=== PATIENT | female | born 1995 | race Caucasian/White ===

== ENCOUNTER → 2019-11-13 07:42 | Outpatient (CLI) | payer OTHER, SELFPAY ==
--- NOTE | ~2019-11-13 | US_ITS ---
US right upper quadrant DATE: 11/13/2019 08:13 INDICATION: Epigastric abdominal pain TECHNIQUE: Real-time imaging and Doppler analysis of the liver, pancreas, gallbladder areas COMPARISON: None FINDINGS: There is an approximately 3-4 mm polyp of the gallbladder wall. No gallstones or gallbladde r wall thickening or pericholecystic abnormal fluid collection is noted. Negative sonographic Guerin' s sign. The common bile duct measures 4.4 mm, normal. No hepatic or pancreatic space-occupying mass lesion. Normal hepatopedal portal venous flow direction . IMPRESSION: Small gallbladder wall polyp Reviewed, dictated and finalized at [facility]. Reviewed, dictated and finalized at [facility].
== END ==
PROVIDERS: PCP Nurse Practitioner Family; Visit Provider Nurse Practitioner Family
DX: R10.13 Epigastric pain (principal); K82.4 Cholesterolosis of gallbladder
CPT/HCPCS: 76705

== ENCOUNTER 2020-02-08 00:39 | Outpatient (CLI) | payer OTHER, SELFPAY ==
[2020-02-08 20:28] LABS: SARS-CoV-2 RNA PCR Negative
== END 2020-02-08 00:40 | disposition home or self-care (01) ==
LOC: ANHCOVIDDT 00:39
PROVIDERS: PCP Nurse Practitioner Family; Visit Provider Surgery
DX: Z01.812 Encounter for preprocedural laboratory examination (principal); Z20.828 Contact with and (suspected) exposure to other viral communicable diseases
CPT/HCPCS: 87635; C9803; U0003

== ENCOUNTER 2020-02-08 09:05 | Outpatient (CLI) | payer OTHER, SELFPAY ==
[2020-02-08 09:51] LABS: Alanine Aminotransferase 13 U/L (4-35); Albumin Level 4.5 g/dL (3.5-5.1); Alkaline Phosphatase 88 U/L (38-126); Amylase 62 U/L (30-110); Aspartate Amino Transferase 24 U/L (14-36); Bilirubin,Total 0.3 mg/dL (0.2-1.3); Lipase 39 U/L (23-300)
== END 2020-02-08 09:06 | disposition home or self-care (01) ==
LOC: ANHSURGERY 09:07
PROVIDERS: PCP Nurse Practitioner Family; Visit Provider Surgery
DX: R10.13 Epigastric pain (principal); Z01.818 Encounter for other preprocedural examination
CPT/HCPCS: 36415; 80076; 82150; 83690; 86850; 86900; 86901

== ENCOUNTER 2020-02-11 00:25 | Day surgery (SDC) | payer OTHER, SELFPAY ==
[2020-01-30 17:14] VITALS: BMI 32.8
[2020-02-11] VITALS (9 sets, daily range): BP systolic 112–142; BP diastolic 54–95; PULSE 67–119; RESP 16–21; TEMP 36.1–36.7; O2SAT 98–100
--- NOTE | 2020-02-11 09:34 | WPDANESEPPF ---
Anes - Initial Pre Proc Eval Procedure: Operation Date: 02/11/20 12:00 Proposed Procedures p Laparoscopic Cholecystectomy Possibly Open - Subhash Villagomez DO Date/Time: 02/11/20 09:34 Surgeon: Subhash Villagomez DO Pre Op Diagnosis: Epigastric Pain, Gallbladder Polyp Patient Data Age: 24 Gender: F Height: 1.73 m Weight: 97.8 kg Allergies Allergy/AdvReac Type Severity Reaction Status Date / Time No Known Allergies Allergy Mild Verified 01/08/20 09:44 Home Medications Medication Instructions Recorded Confirmed Type fexofenadine 60 mg tablet 60 mg PO Q12H PRN 01/07/20 01/30/20 History omeprazole magnesium 20 mg 20 mg PO DAILY 01/07/20 01/30/20 History tablet,delayed release ondansetron HCl 4 mg tablet 4 mg PO Q8H PRN 01/07/20 01/30/20 History norethindrone-e.estradiol-iron 1 cap PO DAILY 01/30/20 01/30/20 History [[place]] Patient hx anesthesia problems: post op nausea/vomiting Family hx anesthesia problems: none PMFSH Past Medical History Medical History (Updated 02/11/20 @ 09:34 by Paul Wheeler MD) Anxiety BMI 33.0-33.9,adult Epigastric abdominal pain Gallbladder polyp History of gastroesophageal reflux (GERD) History of kidney stones Obesity Surgical History Surgical History H/O removal of cyst chin History of myringotomy History of tonsillectomy Family History Family History Father Hypertension Mother Hypertension Grandparent Diabetes mellitus Uterine cancer Social History Social History Smoking status: Never smoker Alcohol intake: current Substance use: never Living arrangements: with family 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 Gender identity (if verbalized by the patient): Female Sexual Orientation (if Verbalized by the Patient): Straight or Heterosexual Spiritual care concerns: No Anes - Eval Final PreProcedure Day of Procedure 02/11/20 09:34 Patient weight: obese Heart: regular rate and rhythm Lungs: clear to auscultation and normal air movement Airway: Mallampati scale class II Neurological: alert and oriented Last oral intake: >/= 8 hours ASA classification: II Emergent: no Anesthetic plan: proceed Anesthesia type and monitoring: general ETT Informed Consent: The patient's anesthetic plan and its attendant risks and benefits were discussed with the patient/family/POA. Questions were solicited and answers provided to the satisfaction of the patient/family/POA.
[2020-02-11] MEDS: LACTATED RINGERS 1,000 ML 30 ML IV CONT ×2 (11:14→14:40)
[2020-02-11] MEDS: ACETAMINOPHEN 500 MG TABLET 1000 MG PO (11:15)
[2020-02-11] MEDS: KETOROLAC 15 MG/ML VIAL (*BKC) IV PUSH (11:20)
--- NOTE | 2020-02-11 12:41 | PM.IMHP ---
H&P: HPI History of Present Illness Date/Time: 02/11/20 12:41 Chief complaint: Epigastric Pain, Gallbladder Polyp Narrative: Kym Lyons is a 24 year old female who presents for lap dario. She was having epigastric pain and u/s showed gallbladder polyp. Review of Systems Review of Systems: All systems reviewed & are unremarkable except as noted in HPI and below Constitutional: Constitutional: Denies chills, Denies fever(s), Denies headache(s) and Denies weight loss Eyes: Eyes: Denies change in vision ENT: Denies dizziness, Denies headache(s), Denies neck mass and Denies throat swelling Cardiovascular: Cardiovascular: Denies chest pain, Denies lightheadedness and Denies dyspnea Respiratory: Respiratory: Denies cough, Denies dyspnea and Denies wheezing Gastrointestinal: Gastrointestinal: Denies abdominal pain, Denies change in bowel habits, Denies nausea and Denies vomiting Genitourinary: Genitourinary: Denies hematuria and Denies dysuria Musculoskeletal: Musculoskeletal: Reports as per HPI Integumentary/Breasts: Skin/Breast: Reports as per HPI Neurologic: Denies dizziness and Denies headache(s) Allergic/Immunologic: Allergic/Immunologic: Denies throat swelling and Denies wheezing PMFSH Past Medical History Medical History Anxiety BMI 33.0-33.9,adult Epigastric abdominal pain Gallbladder polyp History of gastroesophageal reflux (GERD) History of kidney stones Obesity Surgical History Surgical History H/O removal of cyst chin History of myringotomy History of tonsillectomy Family History Family History Father Hypertension Mother Hypertension Grandparent Diabetes mellitus Uterine cancer Social History Social History Smoking status: Never smoker Alcohol intake: current Substance use: never Living arrangements: with family 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 Gender identity (if verbalized by the patient): Female Sexual Orientation (if Verbalized by the Patient): Straight or Heterosexual Spiritual care concerns: No Meds Home Medications and Allergies Home Medications Medication Instructions Recorded Confirmed Type fexofenadine 60 mg tablet 60 mg PO Q12H PRN 01/07/20 02/11/20 History omeprazole magnesium 20 mg 20 mg PO DAILY 01/07/20 02/11/20 History tablet,delayed release ondansetron HCl 4 mg tablet 4 mg PO Q8H PRN 01/07/20 01/30/20 History norethindrone-e.estradiol-iron 1 cap PO DAILY 01/30/20 02/11/20 History [facility] Allergies Allergy/AdvReac Type Severity Reaction Status Date / Time No Known Allergies Allergy Mild Verified 01/08/20 09:44 Vital Signs Vital Signs - 24 hr 02/11/20 11:24 Temperature 36.7 C Pulse Rate 119 H Blood Pressure 142/90 H Pulse Oximetry 100 Exam Const: General: no acute distress and alert Orientation/consciousness: patient oriented x3 HENMT: Head: normocephalic and atraumatic Ears: hearing grossly normal bilaterally General nose exam: Normal nares present Mouth: Yes Normal oral and palatal mucosa present Eyes: Periorbital: periorbital findings normal Sclera: sclerae normal EOM: EOMs intact bilaterally Neck: Neck: normal visual inspection, no lymphadenopathy and trachea midline Chest: Chest palpation & inspection: normal inspection of the chest Resp: Effort & Inspection: normal respiratory effort Auscultation: clear to auscultation bilaterally Cardio: Jugular venous distension: no JVD Rate: regular rate Rhythm: regular rhythm Heart sounds: S1 normal heart sound present and S2 normal heart sound present Peripheral pulses: Peripheral pulses 2+ throughout GI: Inspection: normal to inspection GI Palp: Yes Soft to palpation, No Tenderness to palpati
--- NOTE | 2020-02-11 12:42 | WPDHPUPDATE1 ---
History and Physical Update Update Date/Time: 02/11/20 12:43 History and Physical has been reviewed, including an updated exam of the patient. There are NO changes in the patient's condition. Risks, benefits, and alternatives have been discussed and questions answered. Patient agrees to proceed with procedure.
[2020-02-11] MEDS: ceFAZolin 2 GM/D5W 50 ML 2 GM/50 ML BAG IVPB (13:19)
--- NOTE | 2020-02-11 14:07 | PM.PROC ---
Procedure Note - Detailed Date of procedure: 02/11/20 Pre-op diagnosis: Epigastric Pain, Gallbladder Polyp Post-op diagnosis: same Procedure performed: Laparoscopic Cholecystectomy Description of procedure: Procedure as well as risks, benefits, and alternatives were discussed with patient. Written consent was obtained and placed in chart prior to procedure. The patient was brought back to surgical suite. Patient was placed in supine position on operating table. Time-out was done to confirm patient and procedure. Patient was then intubated by the anesthesia department. Abdomen was prepped and draped in sterile fashion using chlorhexidine prep. 0.5% bupivacaine with epinephrine was infiltrated at each site of incision. A 5 millimeter incision was made near the umbilicus, and a 5 millimeter Optiview trocar was advanced through the abdominal layers under direct visualization. Once inside the abdominal cavity, carbon dioxide was insufflated to create a pneumoperitoneum. The camera was inserted and the abdomen was inspected. No immediate abnormalities were identified. The patient was placed in reverse Trendelenburg position and rotated slightly to the left. An 11 millimeter incision was made in the subxiphoid region, and an 11 millimeter trocar was inserted under direct visualization. Two 5 millimeter incisions were made in the right upper quadrant, and two 5 millimeter trocars were inserted under direct visualization. The gallbladder was identified and grasped at the fundus and retracted superiorly. It was then grasped at the infundibulum retracted laterally. Careful dissection around the neck of the gallbladder was performed using blunt dissection with a [place] grasper and hook electrocautery. The cystic duct was identified, and a window was created behind it. The cystic artery was also identified and a window was created behind it. The critical view of safety was identified, visualizing the cystic duct running directly into the neck of the gallbladder, and the cystic artery running directly into the wall of the gallbladder. A 5 millimeter clip rn pediatric icu was then used to place 2 clips proximally and 1 clip distally on both the cystic duct and cystic artery. They were then both transected using endoscopic scissors. Once safely away from the kenneth hepatitis, the gallbladder was dissected free from the liver bed using hook electrocautery. Hemostasis was achieved along the way. The gallbladder was removed completely and then removed through the subxiphoid port. The liver bed was then inspected. Hemostasis appeared adequate, and our clips appeared secure. The area was gently irrigated with sterile saline. No other abnormalities were seen. The patient was flattened out in bed, and 1 final inspection was made around the abdominal cavity. The subxiphoid port was removed, and a Jeremias Adalberto cone was used to approximate the fascia with an 0-Vicryl simple interrupted suture. The remaining ports were then removed under direct visualization, the camera was removed, and the pneumoperitoneum was released. The skin of the incisions was approximated using 4-0 Monocryl subcuticular sutures. Exofin glue was applied on top. The patient was then awakened from anesthesia, extubated, and transferred to recovery. Anesthesia: GETA and local (0.5% bupivicaine with epi) Surgeon: Subhash Villagomez DO Estimated blood loss (mL): 5 Drains: No Packing: No Pathology: yes Complications: No immediate complications Condition: stable (Patient tolerated procedure well, and is currently resting comfortably in recovery.) Disposition: same day Findings: This is a 24-year-old woman who presented with epigastric pain for the past 2 years. Pain has been intermittent and associated with nausea. She has not been able to identify certain foods that cause her pain. A gallbladder ultrasound was obtained and this showed evidence of a gallbladder wall polyp. Discussions were made with the
[2020-02-11] MEDS: ONDANSETRON INJ 4 MG/2 ML VIAL IV PUSH (14:16)
[2020-02-11] MEDS: fentaNYL CITRATE INJ (*CRX) 100 MCG/2 ML VIAL 25 MCG IV PUSH ×2 (14:34→14:37)
[2020-02-11] MEDS: SCOPOLAMINE 1.5 MG PATCH TRANSDERM (14:51)
== END 2020-02-11 16:21 | disposition home or self-care (01) ==
PROVIDERS: PCP Nurse Practitioner Family; Visit Provider Surgery
PROC: 0FT44ZZ Resection of Gallbladder, Percutaneous Endoscopic Approach (ICD-10-PCS; CPT 47562; principal; 2020-02-11 12:00)
DX: K81.1 Chronic cholecystitis (principal); K21.9 Gastro-esophageal reflux disease without esophagitis; F41.9 Anxiety disorder, unspecified; E66.9 Obesity, unspecified; Z68.32 Body mass index [BMI] 32.0-32.9, adult; Z79.899 Other long term (current) drug therapy
CPT/HCPCS: 47562; 88304; A9270; J0690; J1100; J1885; J2250; J2405; J2704; J2710; J3010; J7030; J7120

== ENCOUNTER → 2020-11-11 08:55 | Outpatient (CLI) | payer OTHER, SELFPAY ==
[2020-11-11 17:39] LABS: SARS-CoV-2 RNA PCR Negative
== END ==
PROVIDERS: PCP Nurse Practitioner Family; Visit Provider Nurse Practitioner Family
DX: R43.2 Parageusia (principal); Z20.822 Contact with and (suspected) exposure to COVID-19
CPT/HCPCS: C9803; U0003; U0005

== ENCOUNTER → 2021-06-09 13:16 | Outpatient (CLI) | payer OTHER, SELFPAY ==
--- NOTE | ~2021-06-09 | US_ITS ---
EXAMINATION: US thyroid DATE: 06/09/2021 13:31 INDICATION: Goiter. TECHNIQUE: Multiple ultrasound images of the thyroid were obtained. COMPARISON: None. FINDINGS: The right thyroid lobe measures 4.3 x 1.7 x 1.3 cm. The left thyroid lobe measures 3.3 x 1.5 x 1.4 c m. The thyroid demonstrates heterogeneous hypoechogenicity. Vascularity is normal. In the left thyro id lobe, there is a 1.3 cm solid, hypoechoic, [id number] nodule with ill-defined margin without echogenic foci (TI-RADS TR4). IMPRESSION: 1. Left thyroid nodule. Thyroid ultrasound is recommended in one year. 2. 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 Reviewed, dictated and finalized at location [facility]. NO FLOOR PERSON
== END ==
PROVIDERS: Visit Provider Internal Medicine Endocrinology, Diabetes & Metabolism
DX: E04.1 Nontoxic single thyroid nodule (principal)
CPT/HCPCS: 76536

== ENCOUNTER → 2021-08-21 10:21 | Outpatient (CLI) | payer OTHER, SELFPAY ==
--- NOTE | ~2021-08-21 | US_ITS ---
US right upper quadrant INDICATION: Elevated liver enzymes PROCEDURE: Realtime right upper abdominal ultrasound. COMPARISON: No prior studies for comparison. FINDINGS: The pancreas is normal without focal mass or pancreatic ductal dilation. Liver echotexture is normal without focal mass or intrahepatic biliary dilatation. There is normal directional flow i n the portal vein. Gallbladder is surgically absent. Common bile duct measures mm. No sonographic Guerin's sign. IMPRESSION: 1: Unremarkable limited abdominal ultrasound postcholecystectomy. Reviewed, dictated and finalized at location [facility].
== END ==
PROVIDERS: PCP Nurse Practitioner Family; Visit Provider Internal Medicine Endocrinology, Diabetes & Metabolism
DX: R74.01 Elevation of levels of liver transaminase levels (principal)
CPT/HCPCS: 76705

== ENCOUNTER 2024-02-15 14:11 | Outpatient (CLI) | payer OTHER, SELFPAY ==
--- NOTE | ~2024-02-15 | CT_ITS ---
EXAMINATION: CT abdomen wo con DATE: 02/15/2024 14:32 INDICATION: Costovertebral angle tenderness. TECHNIQUE: Computed tomography (CT) of the abdomen was performed without intravenous contrast. Automa lucina exposure control and iterative reconstruction technique were employed. The dose-length product wa s 850.03 mGy-cm. COMPARISON: None. FINDINGS: The visualized portions of the lung bases demonstrate mild atelectasis. No pleural effusion . The heart size is normal. No pericardial effusion. The liver and spleen are normal. There are dorman es of cholecystectomy. The pancreas and adrenal glands are normal. There are 3 stones in right kidney measuring up to 3 mm. There are 4 stones in left kidney measuring up to 2 mm. There are no dilated l oops of bowel. The appendix is normal. There are no pathologically enlarged lymph nodes. There is no free intraperitoneal fluid. There is mild lumbar spondylosis. There is a hemangioma in L1 vertebral b valerie. IMPRESSION: 1. Bilateral nonobstructing kidney stones. Reviewed, dictated and finalized at location A. 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
[2024-02-15 15:08] LABS: Basophils Absolute Auto 0.1 K/mm3 (0.0-0.1); Basophils Percent Auto 0.5 % (0.2-1.2); Eosinophils Absolute Auto 0.1 K/mm3 (0-0.3); Eosinophils Percent Auto 0.7 % (0-4.4); Hematocrit 47.1 % (37.0-47.0); Hemoglobin 14.4 g/dL (12.0-15.0); Immature Granulocyte Absolute 0.01 K/mm3 (0.00-0.031); Immature Granulocyte Percent A 0.1 % (0-0.5); Lymphocytes Absolute Auto 2.62 K/mm3 (0.9-3.2); Lymphocytes Percent Auto 26.2 % (18.3-44.2); Mean Corpuscular HGB Conc 30.6 g/dl (32-36); Mean Corpuscular Hemoglobin 27.1 pg (26-34); Mean Corpuscular Volume 88.5 fl (80-100); Monocytes Absolute Auto 0.5 K/mm3 (0.1-0.6); Monocytes Percent Auto 5.4 % (2.6-8.5); Neutrophils Absolute Auto 6.7 K/mm3 (1.3-6.7); Neutrophils Percent Auto 67.1 % (45.5-73.1); Platelet Count Result 356 k/mm3 (150-375); Red Blood Count 5.32 M/mm3 (4.2-5.4); Red Cell Distribution Width 13.8 % (11.5-14.5)
[2024-02-15 15:22] LABS: Alanine Aminotransferase 13 U/L (6-35); Albumin Level 4.8 g/dL (3.5-5.1); Alkaline Phosphatase 100 U/L (38-126); Anion Gap 11 mmol/L (4-12); Aspartate Amino Transferase 21 U/L (14-36); Bilirubin,Total 0.4 mg/dL (0.2-1.3); Blood Urea Nitrogen 7 mg/dL (7-17); Calcium 9.7 mg/dL (8.4-10.2); Carbon Dioxide 24 mmol/L (22-30); Chloride 107 mmol/L (98-107); Estimated Glomerular Filt Rate > 60; Glucose 88 mg/dL (65-110); Sodium 142 mmol/L (137-145)
== END 2024-02-15 14:12 | disposition home or self-care (01) ==
LOC: ANHIMG 14:15
PROVIDERS: PCP Nurse Practitioner Family; Visit Provider Nurse Practitioner Family
DX: M54.9 Dorsalgia, unspecified (principal); Z87.442 Personal history of urinary calculi; Z13.1 Encounter for screening for diabetes mellitus; Z13.0 Encounter for screening for diseases of the blood and blood-forming organs and certain disorders involving the immune mechanism; N20.0 Calculus of kidney
CPT/HCPCS: 36415; 74150; 80053; 85025

== ENCOUNTER 2024-03-22 08:35 | Outpatient (CLI) | payer OTHER, SELFPAY ==
--- NOTE | ~2024-03-22 | US_ITS ---
EXAMINATION: US thyroid DATE: 03/22/2024 09:20 INDICATION: Nontoxic single thyroid nodule. TECHNIQUE: Multiple ultrasound images of the thyroid were obtained. COMPARISON: Ultrasound 06/09/2021 FINDINGS: The right thyroid lobe measures 3.2 x 1.4 x 1.2 cm. The left thyroid lobe measures 3.3 x 1.4 x 1.5 c m. The thyroid is diffusely heterogeneous and filled with nodules of similar ultrasound appearance w ithout normal intervening parenchyma. Vascularity is normal. In the inferior left thyroid lobe, there is a 9 mm solid, hypoechoic, wider than tall nodule with smooth margin without echogenic foci (TI-RA DS TR4). IMPRESSION: 1. 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 2. Small thyroid nodule, likely not clinically significant. No follow-up is needed. Reviewed, dictated and finalized at location A. 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 2. Small thyroid nodule, likely not clinically significant. No follow-up is nee ded.
== END 2024-03-22 08:36 | disposition home or self-care (01) ==
PROVIDERS: Visit Provider Internal Medicine Endocrinology, Diabetes & Metabolism
DX: E04.1 Nontoxic single thyroid nodule (principal)
CPT/HCPCS: 76536

== ENCOUNTER 2024-05-12 14:29 | Emergency (ER) | payer OTHER, SELFPAY ==
--- NOTE | 2024-05-12 14:31 | ED.URI ---
HPI - URI/Sore Throat General Chief Complaint: Upper Respiratory Infection Stated Complaint: BODY ACHES/TIRED/CHILLS/NAUSEA Time Seen by Provider: 05/12/24 14:31 Source: patient Mode of arrival: ambulatory Limitations: no limitations History of Present Illness HPI Narrative: Kym is a 28-year-old female patient presenting to the clinic today with complaints of cough, chills, body aches, nausea, and fatigue x1 day. She reports symptoms started yesterday around 6:00 a.m.. 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 No known exposure to anyone with COVID or flu. MD elicited complaint: cough, nasal congestion and other (Body aches, chills,) Related Data Home Medications ?Medication ?Instructions ?Recorded ?Confirmed ?Last Taken ?Type omeprazole magnesium 20 mg 20 mg PO DAILY 01/07/20 04/18/24 02/10/20 History tablet,delayed release (Prilosec OTC) cetirizine 10 mg tablet (Zyrtec) 10 mg PO DAILY PRN 08/03/23 04/18/24 Unknown History cholecalciferol (vitamin D3) 50 100 mcg PO DAILY 08/03/23 04/18/24 Unknown History mcg (2,000 unit) capsule Allergies Allergy/AdvReac Type Severity Reaction Status Date / Time No Known Allergies Allergy Mild Verified 05/12/24 14:52 Review of Systems Review of Systems: Pertinent positives per HPI. Patient denies any fever, chills, rash, headache, visual changes, dizziness, shortness of breath, chest pain, palpitations, nausea, vomiting, diarrhea, constipation, abdominal pain, or any urinary issues. [facility] Past Medical History Medical History Ryne's disease Anxiety Obesity Gallbladder polyp Epigastric abdominal pain BMI 33.0-33.9,adult History of kidney stones History of gastroesophageal reflux (GERD) Surgical History Surgical History [place] teeth extracted History of dental surgery Hx laparoscopic cholecystectomy 02/11/20 History of myringotomy H/O removal of cyst chin History of tonsillectomy Family History Family History Father Hypertension Mother Hypertension Diabetes mellitus Asthma Grandparent Diabetes mellitus Uterine cancer Skin cancer Hypertension Social History Social History (Updated 04/18/24 @ 11:43 by Rehan Palmer) Social History: 04/18/24 Patient declined SDOH Smoking status: Never smoker Alcohol intake: current Alcohol use details: rarely Substance use: never Substance use type: does not use Do You Feel Safe in your Home?: Yes Lack of Transportation: No Lack of Food: Never True Current Housing: I Have Housing Concerned About Future Housing: No Difficulty Paying Gas/Electric Bills: No Difficulty Paying for Meds: No Currently Unemployed: No Education: Bachelor's Degree Difficulty w/ Childcare or Family Care: No Living arrangements: with family Occupation/Education: occupation 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 There is no relevant family history pertinent to the patient complaint. Exam Narrative: General: Well-developed, well nourished, in no apparent distress Head: Normocephalic, atraumatic Eyes: Pupils equally round and reactive to light bilaterally, EOM intact, sclera and conjunctive clear, no discharge, lids normal Ears: TMs intact and clear, ear canals clear, no drainage, grossly hearing normal. Nose: Nares patent, clear nasal discharge, no inflammation, no sinus tenderness. Mouth: Oral pharynx without lesions or masses, good dentition, MMM. Postnasal drip Neck: Supple, trachea midline, no enlargement of anterior or posterior cervical nodes, no thyroid masses or goiter palpable. Cardio: Regular rate and rhythm, s1 and s2 normal, no murmur appreciated. Resp: Clear to auscultation bilaterally, no rhonchi, rales, wheezing or rubs Course Course Emergency Course: Portions of this record may have been created with voice recognition software. Level of Care: Express Care Visit Vital Signs Vital signs: Vital Signs Temperature 36.6 C 05/12/24 14:52 Pulse Rate 92 05/12/24 14:52 Respiratory Rate 16 05/12/24 14:52 Blood Pressure 138/86 05/12/24 14:52 Pulse Oximetry 100 05/12/24 14:52 Temperature 36.6 C 05/12/24 14:52 Pulse Rate 92 05/12/24 14:52 Respiratory Rate 16 05/12/24 14:52 Blood Pressure 138/86 05/12/24 14:52 Pulse Oximetry 100 05/12/24 14:52 Vital signs reviewed MDM - URI/Sore Throat MDM Narrative Medical decision making narrative: At the time of visit patient is resting comfortably on the exam table. Patient appears to be nontoxic. Labs: COVID and influenza testing was negative in the clinic today. Plan: I suspect patient has URI/viral syndrome. Supportive measures were discussed with the patient and they voiced understanding discharge instructions and agrees to treatment plan. Return precautions reviewed Differential Diagnosis Differential diagnosis: Likely upper respiratory infection, otitis media, sinusitis, viral infection, bronchitis, influenza, pharyngitis and other (COVID) Discharge Plan Discharge Clinical Impression: Acute viral syndrome URI (upper respiratory infection) Qualifiers: URI type: unspecified URI Qualified Code(s): J06.9 - Acute upper respiratory infection, unspecified Patient Disposition: Home, Self-Care Condition: Stable Instructions: Antibiotic Form, Viral Syndrome (ED), Cold Symptoms (ED) Additional Instructions: COVID and influenza testing was negative in the clinic today. Increase fluids and stay well hydrated Tylenol/motrin for pain/fever Flonase and OTC antihistamines as directed Vicks vapor rub to open sinuses Sinus rinses for congestion Cepacol spray, cough drops, throat lozenges, warm tea with honey/lemon, gargle salt water to soothe throat BRAT diet for diarrhea Clear liquids x 24 hours then advance as tolerated for nausea/vomiting Go to the ED if you develop a worsening in your condition- high fever not controlled by Tylenol or Motrin, dehydration, weakness, lethargy, shortness of breath, or chest pain. Follow up with your PCP in 3-5 days if symptoms persist. Patient Language: Korean Prescriptions: No Action omeprazole magnesium [Prilosec OTC] 20 mg tablet,delayed release (DR/EC) 20 mg PO DAILY 1 mg-20 mcg (24)/75 mg (4) tablet 1 tablet PO DAILY Qty: 84 4RF hydroxyzine HCl 10 mg tablet 10 mg PO TID PRN (Reason: anxiety) Qty: 30 0RF cetirizine [Zyrtec] 10 mg tablet 10 mg PO DAILY PRN cholecalciferol (vitamin D3) 50 mcg (2,000 unit) capsule 100 mcg PO DAILY methocarbamol 750 mg tablet 750 mg PO TID Qty: 30 0RF diclofenac sodium 75 mg tablet,delayed release (DR/EC) 75 mg PO BID Qty: 30 0RF trazodone 50 mg tablet 50 mg PO QHS PRN (Reason: insomnia) Qty: 90 1RF levothyroxine [Synthroid] 112 mcg tablet 112 mcg PO .COMPLEX Qty: 125 2RF Rx Instructions: 112 mcg orally 9 pills a week; Follow-up/Referrals: Tara Short APRN [Primary Care Provider] - Stand Alone Forms: Work/School Release IP Time of Disposition: 15:09 Quality NIHSS Nursing Documentation ED NIHSS nursing documentation: reviewed/agree
[2024-05-12 14:52] VITALS: BP 138/86; PULSE 92; RESP 16; TEMP 36.6; O2SAT 100
[2024-05-12 15:14] LABS: EDCOVIDSCREEN Negative (Negative); EDINFLUASCREEN Negative (Negative); EDINFLUBSCREEN Negative (Negative)
== END 2024-05-12 15:14 | disposition home or self-care (01) ==
PROVIDERS: Emergency Provider Nurse Practitioner Family; PCP Nurse Practitioner Family
DX: B34.9 Viral infection, unspecified (principal); J06.9 Acute upper respiratory infection, unspecified; Z20.822 Contact with and (suspected) exposure to COVID-19; E06.3 Autoimmune thyroiditis; K21.9 Gastro-esophageal reflux disease without esophagitis; E66.9 Obesity, unspecified; Z68.35 Body mass index [BMI] 35.0-35.9, adult
CPT/HCPCS: 87426; 87804; 99212; G0463

== ENCOUNTER 2024-05-24 15:37 | Outpatient (CLI) | payer OTHER, SELFPAY ==
--- NOTE | ~2024-05-24 | XR_ITS ---
EXAMINATION: XR lumbar spine 2-3V DATE: 05/24/2024 15:51 INDICATION: Lumbago with sciatica, unspecified side. TECHNIQUE: 3 views of lumbar spine were obtained. COMPARISON: None. FINDINGS: Alignment is normal. Vertebral body heights are normal. There is mildly decreased disc heig ht at L5-S1. There is multilevel mild facet joint osteoarthritis. IMPRESSION: 1. Mild lumbar spondylosis. Reviewed, dictated and finalized at location A. [facility] ARTIST TECHNICAL IMPRESSION: 1. Mild lumbar spondylosis.
--- OUTSIDE RECORDS SUMMARY | 2024-05-24 15:41 | XMS_ITS | Clinical Summary ---
Author Organization [facility] Address [address] [place] [address] Care Team Providers Care Grinding Room Supervisor Name Role Phone Brenda Mcdonough MD Primary Care Provider [phone] Source Comments [facility],non-owned Affiliates and Associated Physician Practices is amultiple site organization consisting of ambulatory clinics and hospital sitesin [place], [place], [place] and [place]. This disclosure is being madepursuant to the Care Everywhere program and may not contain all information available regarding this patient. Last updated 17.[facility] Allergies No known active allergies Medications * Be aware that medications may not be up to date on this document. Alwaysverify current medications with the patient. Medication Sig Dispensed Refills Start Date End Date Status lansoprazole (PREVACID) 15 MG capsule Take 15 mg by mouth daily before breakfast. 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 Pulse 84 05/15/2012 10:39 PM PHOTOGRAPHIC MACHINE OPERATOR Temperature 37.1 C (98.8 F) 05/15/2012 10:39 PM PHOTOGRAPHIC MACHINE OPERATOR Respiratory Rate 16 05/15/2012 10:3 9 PM PHOTOGRAPHIC MACHINE OPERATOR Oxygen Saturation 99% 05/15/2012 10: 39 PM PHOTOGRAPHIC MACHINE OPERATOR Inhaled Oxygen Concentration - - Weight 103.2 kg (227 lb 8.2 oz) 013 10:39 PM PHOTOGRAPHIC MACHINE OPERATOR Height 169.2 cm (5' 6.63 ) 05/03/2011 2:00 PM CS T Body Mass Index - - Plan of Treatment Health Maintenance Due Date Last Done Comments PAP SMEAR 1995 HIV SCREENING 09/11/2010 HEPATITIS C SCREENING 09/07/2013 DTAP/TDAP/TD VACCINES (1 - Tdap) 09/11/2014 HEPATITIS B VACCINE (1 of 3 - 19+ 3-dose series) 09/11/2014 COVID-19 VACCINE (1 - 2023-2 5 season) 2023 INFLUENZA VACCINE (#1) 2023 DEPRESSION SCREENING 04/04/2024 ZOSTER VACCINE (1 of 2) 09/11/2045 HIB VACCINE Aged Out No longer eligi ble based on patient's age to complete this topic HPV VACCINE Aged Out No longer eligi ble based on patient's age to complete this topic MENINGOCOCCAL (Group B) VACCINE Aged Out No longer eligible based on patient's age to complete this topic MENINGOCOCCAL VACCINE Aged Out No tung nell eligible based on patient's age to complete this topic PNEUMOCOCCAL VACCINE Aged Out No long er eligible based on patient's age to complete this topic Care Teams Grinding Room Supervisor Relationship Specialty Start Date End Date Brenda Mcdonough MD [address] [place] [address] PCP - General 03/21/11
--- OUTSIDE RECORDS SUMMARY | 2024-05-24 15:41 | XMS_ITS | Referral Summary ---
Author Organization [facility] Address [address] [place] [address] Care Team Providers Care Cow Puncher Name Role Phone Brenda Mcdonough MD Primary Care Provider [phone] Source Comments [facility],non-owned Affiliates and Associated Physician Practices is amultiple site organization consisting of ambulatory clinics and hospital sitesin [place], [place], [place] and [place]. This disclosure is being madepursuant to the Care Everywhere program and may not contain all information available regarding this patient. Last updated 17.[facility] Allergies No known active allergies Medications * [...] Comments Blood Pressure 141/80 05/15/2012 10:39 PM RESEARCH SCHOLAR Pulse 84 05/15/2012 10:39 PM RESEARCH SCHOLAR Temperature 37.1 C (98.8 F) 05/15/2012 10:39 PM RESEARCH SCHOLAR Respiratory Rate 16 05/15/2012 10:3 9 PM RESEARCH SCHOLAR Oxygen Saturation 99% 05/15/2012 10: 39 PM RESEARCH SCHOLAR Inhaled Oxygen Concentration - - Weight 103.2 kg (227 lb 8.2 oz) 013 10:39 PM RESEARCH SCHOLAR Height 169.2 cm (5' 6.63 ) 05/03/2011 2:00 PM CS T Body Mass Index - - Plan of Treatment Not on file Care Teams Cow Puncher Relationship Specialty Start Date End Date Brenda Mcdonough MD [address] [place] [address] PCP - General 03/21/11
--- OUTSIDE RECORDS SUMMARY | 2024-05-24 15:41 | XMS_ITS | Data Portability ---
Author Organization [facility] [employer], Main Office Address [address] [place] [address] Assessment No assessment recorded. Plan of Treatment Reminders Order Date Submit Date Provider Last Modified By Organization Details Last Modified Time Details Appointments None recorded. Lab TSH, serum, reflex free T4 [address] (Lab), [address] [place] [address], [address], 3 08:38:35 lipid panel, serum 2022 023 [facility] (Lab), [address] [place] [address], [address], 3 06:37:32 CBC w/ auto diff 2022 023 [facility] (Lab), [address] [place] [address], [address], 3 06:37:33 Referral None recorded. Procedures None recorded. Surgeries None recorded. Imaging None recorded. Medication Orders trazodone 50 mg tablet 2022 023 [id number], [address], [place], [phone], 3 09:43:28 cyanocobala min (vit B-12) 1,000 mcg/mL injection solution [address] [facility] #[id number], [address], [place], [id number], 3 11:20:20 Vitamin D3 50 mcg (2,000 unit) capsule 2022 023 [facility][id number], [address] [facility], [place], [place], [phone], 3 11:20:19 Synthroid 100 mcg tablet 2022 023 [facility], [address] [facility] , [address], [place], [address], 3 11:20:18 Patient TargetsNo targets recorded. Patient Instructions Encounter Date Encounter Id Patient Instructions Last Modified By Organization Details Last Modified Time 03/02/2023 [id number] FU in 3-4 mo wit h alternate provider. Pt aware of [place] departure 03/02/23. [email or web address] Not available 03/02/2023 09:44:31 Reason for Referral None Reported. Results Created Date Observation Date Name Description Value Unit Range Abnormal Flag Note LastModifiedBy Organization Detail LastModifiedTime 01/22/2001/23/2022 TSH+F REE T4 TSH 4.15 mIU/L normal Refer ence Range > or = 20 Years 0.40- 4.50 Pregn garcia Range s First trime ster 0.26- 2.66 Secon d trime ster 0.55- 2.73 Third trime ster 0.43- 2.91 Not Available [facility] [address] [address] [place], [address], 01/23/2022 07:09:56 01/22/2001/23/2022 TSH+F REE T4 T4, free 1.4 NG/dL 0.8-1. 8 normal Not Available [facility] [address] [place], [address], 01/23/2022 07:09:56 01/22/20 22 01/23/2022 T3, FREE T3, free 2.7 pg/mL 2.3-4. 2 normal Not Available [facility] [address] [address] [place], [address], 01/23/2022 07:09:56 01/22/20 22 01/23/2022 VITAM IN B12/F OLATE , SERUM PANEL vitamin B12 1632 pg/mL 200-11 00 high Not Available [address], [address], 01/23/2022 07:09:55 01/22/2001/23/2022 VITAM IN B12/F OLATE , SERUM PANEL folate, serum 11.3 NG/mL normal Refer ence Range Low: <3.4 Borde rline : 3.4-5 .4 Saira l: >5.4 Not Available [address], [address], 01/23/2022 07:09:55 01/22/2001/23/2022 THYRO ID PEROX IDASE ANTIB ODIES thyroid peroxidase antibodies 342 IU/mL <9 high Not Available [address], [address], 01/23/2022 07:09:55 01/22/2001/23/2022 CALCI UM, 24 HOUR URINE (W/ CREAT ININE ) calcium/crea tinine ratio 113 mg/g_ creat 30-275 normal Not Available [address], [address], 01/23/2022 07:09:54 01/22/2001/23/2022 CALCI UM, 24 HOUR URINE (W/ CREAT ININE ) calcium, 24 hour urine 127 mg/24 _h normal Refer ence Range 35-25 0 Low calci um diet 35-20 0 Not Available [address], [address], 01/23/2022 07:09:54 01/22/20 22 01/23/2022 CALCI UM, 24 HOUR URINE (W/ CREAT ININE ) creatinine, 24 hour urine 1.13 g/24_ h 0.50-2 .15 normal Not Available [address] [address] [place], [address], 01/23/2022 07:09:54 01/22/2001/23/2022 COMPR EHENS ANAHY METAB OLIC PANEL glucose 92 mg/dL 65-139 normal Non-f astin g refer ence inter reyna Not Available [address] [place], [address], 01/23/2022 07:09:54 01/22/2001/23/2022 COMPR EHENS ANAHY METAB OLIC PANEL urea nitrogen (BUN) 10 mg/dL 7-25 normal Not Available [address], [address], 01/23/2022 07:09:54 01/22/20 22 01/23/2022 COMPR EHENS ANAHY METAB OLIC PANEL creatinine 0.83 mg/dL 0.50-0 .96 normal Not Available [address], [address], 01/23/2022 07:09:54 01/22/2001/23/2022 COMPR EHENS ANAHY METAB OLIC PANEL eGFR 100 mL/mi n/1.7 3m2 > or = 60 normal The eGFR is based on the CKD-E PI 2020 equat ion. To calcu late the new eGFR from a previ ous Creat inine or Cysta tin C resul t, go to https ://carl bae.keshia gibbs/sarah beth mora s/ kdoqi /gfr% 5Fcal culat or Not Available [address], [address], 01/23/2022 07:09:54 01/22/20 22 01/23/2022 COMPR EHENS ANAHY METAB OLIC PANEL BUN/creatini ne ratio not applic able (calc ) 6-22 Not Available [address] [address] [place], [address], 01/23/2022 07:09:54 01/22/20 22 01/23/2022 COMPR EHENS ANAHY METAB OLIC PANEL sodium 140 mmol/ L 135-14 6 normal Not Available [address], [address], 01/23/2022 07:09:54 01/22/2001/23/2022 COMPR EHENS ANAHY METAB OLIC PANEL potassium 4.4 mmol/ L 3.5-5. 3 normal Not Available [address], [address], 01/23/2022 07:09:54 01/22/2001/23/2022 COMPR EHENS ANAHY METAB OLIC PANEL chloride 104 mmol/ L 98-110 normal Not Available [address], [address], 01/23/2022 07:09:54 01/22/2001/23/2022 COMPR EHENS ANAHY METAB OLIC PANEL carbon dioxide 24 mmol/ L 20-32 normal Not Available [address], [address], 01/23/2022 07:09:54 01/22/2001/23/2022 COMPR EHENS ANAHY METAB OLIC PANEL calcium 9.8 mg/dL 8.6-10 .2 normal Not Available [address], [address], 01/23/2022 07:09:54 01/22/2001/23/2022 COMPR EHENS ANAHY METAB OLIC PANEL protein, total 7.5 g/dL 6.1-8. 1 normal Not Available [address], [address], 01/23/2022 07:09:54 01/22/20 22 01/23/2022 COMPR EHENS ANAHY METAB OLIC PANEL albumin 4.7 g/dL 3.6-5. 1 normal Not Available [address] [address] [place], [address], 01/23/2022 07:09:54 01/22/2001/23/2022 COMPR EHENS ANAHY METAB OLIC PANEL globulin 2.8 g/dL_ (calc ) 1.9-3. 7 normal Not Available [address] [address] [place], [address], 01/23/2022 07:09:54 01/22/2001/23/2022 COMPR EHENS ANAHY METAB OLIC PANEL albumin/glob ulin ratio 1.7 (calc ) 1.0-2. 5 normal Not Available [address] [address] [place], [address], 01/23/2022 07:09:54 01/22/2001/23/2022 COMPR EHENS ANAHY METAB OLIC PANEL bilirubin, total 0.4 mg/dL 0.2-1. 2 normal Not Available [address] [address] [place], [address], 01/23/2022 07:09:54 01/22/2001/23/2022 COMPR EHENS ANAHY METAB OLIC PANEL alkaline phosphatase 102 U/L 31-125 normal Not Available [address] [address] [place], [address], 01/23/2022 07:09:54 01/22/2001/23/2022 COMPR EHENS ANAHY METAB OLIC PANEL AST 15 U/L 10-30 normal Not Available [address] [address] [place], [address], 01/23/2022 07:09:54 01/22/2001/23/2022 COMPR EHENS ANAHY METAB OLIC PANEL ALT 10 U/L 6-29 normal Not Available [address] [address] [place], [address], 01/23/2022 07:09:54 12/10/19 23 12/13/2022 COMPR EHENS ANAHY METAB OLIC PANEL glucose 84 mg/dL 65-99 normal Fasti ng refer ence inter reyna Not Available [address], [address], 12/13/2022 13:38:35 12/10/19 23 12/13/2022 COMPR EHENS ANAHY METAB OLIC PANEL urea nitrogen (BUN) 10 mg/dL 7-25 normal Not Available [address], [address], 12/13/2022 13:38:35 12/10/1912/13/2022 COMPR EHENS ANAHY METAB OLIC PANEL creatinine 0.78 mg/dL 0.50-0 .96 normal Not Available [address], [address], 12/13/2022 13:38:35 12/10/19 23 12/13/2022 COMPR EHENS ANAHY METAB OLIC PANEL eGFR 107 mL/mi n/1.7 3m2 > or = 60 normal Not Available [address], [address], 12/13/2022 13:38:35 12/10/19 23 12/13/2022 COMPR EHENS ANAHY METAB OLIC PANEL BUN/creatini ne ratio SEE NOTE: (calc ) 6-22 Not Repor lucina: BUN and Creat inine are withi n refer ence range . Not Available [address], [address], 12/13/2022 13:38:35 12/10/1912/13/2022 COMPR EHENS ANAHY METAB OLIC PANEL sodium 142 mmol/ L 135-14 6 normal Not Available [address], [address], 12/13/2022 13:38:35 12/10/19 23 12/13/2022 COMPR EHENS ANAHY METAB OLIC PANEL potassium 4.1 mmol/ L 3.5-5. 3 normal Not Available [address], [address], 12/13/2022 13:38:35 12/10/19 23 12/13/2022 COMPR EHENS ANAHY METAB OLIC PANEL chloride 107 mmol/ L 98-110 normal Not Available [address], [address], 12/13/2022 13:38:35 12/10/19 23 12/13/2022 COMPR EHENS ANAHY METAB OLIC PANEL carbon dioxide 25 mmol/ L 20-32 normal Not Available [address], [address], 12/13/2022 13:38:35 12/10/19 23 12/13/2022 COMPR EHENS ANAHY METAB OLIC PANEL calcium 9.1 mg/dL 8.6-10 .2 normal Not Available [address], [address], 12/13/2022 13:38:35 12/10/19 23 12/13/2022 COMPR EHENS ANAHY METAB OLIC PANEL protein, total 6.3 g/dL 6.1-8. 1 normal Not Available [address], [address], 12/13/2022 13:38:35 12/10/19 23 12/13/2022 COMPR EHENS ANAHY METAB OLIC PANEL albumin 4.0 g/dL 3.6-5. 1 normal Not Available [address], [address], 12/13/2022 13:38:35 12/10/19 23 12/13/2022 COMPR EHENS ANAHY METAB OLIC PANEL globulin 2.3 g/dL_ (calc ) 1.9-3. 7 normal Not Available [address] [place], [address], 12/13/2022 13:38:35 12/10/19 23 12/13/2022 COMPR EHENS ANAHY METAB OLIC PANEL albumin/glob ulin ratio 1.7 (calc ) 1.0-2. 5 normal Not Available [address], [address], 12/13/2022 13:38:35 12/10/19 23 12/13/2022 COMPR EHENS ANAHY METAB OLIC PANEL bilirubin, total 0.3 mg/dL 0.2-1. 2 normal Not Available [address], [address], 12/13/2022 13:38:35 12/10/19 23 12/13/2022 COMPR EHENS ANAHY METAB OLIC PANEL alkaline phosphatase 85 U/L 31-125 normal Not Available [address], [address], 12/13/2022 13:38:35 12/10/19 23 12/13/2022 COMPR EHENS ANAHY METAB OLIC PANEL AST 11 U/L 10-30 normal Not Available [address], [address], 12/13/2022 13:38:35 12/10/19 23 12/13/2022 COMPR EHENS ANAHY METAB OLIC PANEL ALT 6 U/L 6-29 normal Not Available [address], [address], 12/13/2022 13:38:35 12/10/19 23 12/13/2022 THYRO ID PEROX IDASE ANTIB ODIES thyroid peroxidase antibodies 333 IU/mL <9 high Not Available [address], [address], 12/13/2022 13:38:36 12/10/19 23 12/13/2022 VITAM IN B12/F OLATE , SERUM PANEL vitamin B12 524 pg/mL 200-11 00 normal Not Available [facility] [address] [place], [address], 12/13/2022 13:38:36 12/10/19 23 12/13/2022 VITAM IN B12/F OLATE , SERUM PANEL folate, serum 11.6 NG/mL normal Refer ence Range Low: <3.4 Borde rline : 3.4-5 .4 Saira l: >5.4 Not Available [facility] [address] [place], [address], 12/13/2022 13:38:36 12/10/1912/13/2022 T3, FREE T3, free 3.0 pg/mL 2.3-4. 2 normal Not Available [address] [address] [place], [address], 12/13/2022 13:38:37 12/10/1912/13/2022 VITAM IN D,25- OH,TO CATRACHO,I A vitamin D,25-oh,tota l,ia 32 NG/mL 30-100 normal Vitam in D Statu s 25-OH Vitam in D: Defic iency : <20 ng/mL Insuf ficie ncy: 20 - 29 ng/mL Optim al: > or = 30 ng/mL For 25-OH Vitam in D testi ng on patie nts on D2-nolen pplem entat ion and patie nts for whom quant itati on of D2 and D3 fract ions is requi red, the [employer] Assur eD(TM ) 25-OH VIT D, (D2,D 3), LC/MS /MS is recom shawn d: order code 37034 (naa ents >2yrs ). See Note 1 Note 1 For addit ional audeliar ashia hess refer to http: //isac Flores stDia gnost ics.c om/fa q/FAQ 199 (This link is being provi ded for infor aakash dinero/ educaurora fraga purpo ses only. ) Not Available [address], [address], 12/13/2022 13:38:38 12/10/1912/13/2022 TSH+F REE T4 TSH 1.44 mIU/L normal Refer ence Range > or = 20 Years 0.40- 4.50 Pregn garcia Range s First trime ster 0.26- 2.66 Secon d trime ster 0.55- 2.73 Third trime ster 0.43- 2.91 Not Available [address], [address], 12/13/2022 13:38:39 12/10/1912/13/2022 TSH+F REE T4 T4, free 1.2 NG/dL 0.8-1. 8 normal Not Available [address], [address], 12/13/2022 13:38:39 03/03/20 23 03/04/2023 LIPID PANEL , STAND CRYS cholesterol, total 211 mg/dL <200 high Not Available [address], [address], 03/04/2023 06:37:32 03/03/20 23 03/04/2023 LIPID PANEL , [place] HDL cholesterol 68 mg/dL > or = 50 normal Not Available [address], [address], 03/04/2023 06:37:32 03/03/20 23 03/04/2023 LIPID PANEL , STAND CRYS triglyceride s 89 mg/dL <150 normal Not Available [address], [address], 03/04/2023 06:37:32 03/03/20 23 03/04/2023 LIPID PANEL , [place] LDL-choleste rol 124 mg/dL _(mildred c) high Refer ence range : <100 Summer able range <100 mg/dL for prima ry preve ntion ; <70 mg/dL for patie nts with CHD or diabe tic patie nts with > or = 2 CHD risk facto rs. LDL-C is now calcu lated using the Danya n-Hop kins calcu rodolfo n, which is a valid ated novel metho d provi ding sully r accur acy than the Fried james equat ion in the estim ation of LDL-C . Danya hernandez SS et al. MERLINE. 2013; 310(1 9): 206- 206 (http ://ed ucati on.Qu estDi NSC. com/f aq/FA Q164) Not Available [facility] [address] [address] [place], [address], 03/04/2023 06:37:32 03/03/20 23 03/04/2023 LIPID PANEL , STAND CRYS chol/HDLC ratio 3.1 (calc ) <5.0 normal Not Available [facility] [address] [address] [facility] [place], [address], 03/04/2023 06:37:32 03/03/20 23 03/04/2023 LIPID PANEL , [place] non HDL cholesterol 143 mg/dL _(mildred c) <130 high For patie nts with diabe jamin plus 1 major ASCVD risk facto r, treat ing to a non-H DL-C goal of <100 mg/dL (LDL- C of <70 mg/dL ) is consi damiánd a dorothy carroll c optio n. Not Available [facility] [address] [address] , [place], [address], 03/04/2023 06:37:32 03/03/20 23 03/04/2023 CBC (INCL UDES DIFF/ PLT) white blood cell count 6.8 thous and/u L 3.8-10 .8 normal Not Available [facility] [address] [address], [place], [address], 03/04/2023 06:37:33 03/03/20 23 03/04/2023 CBC (INCL UDES DIFF/ PLT) red blood cell count 4.62 gnea on/uL 3.80-5 .10 normal Not Available [address], [address], 03/04/2023 06:37:33 03/03/20 23 03/04/2023 CBC (INCL UDES DIFF/ PLT) hemoglobin 11.2 g/dL 11.7-1 5.5 low Not Available [address], [address], 03/04/2023 06:37:33 03/03/20 23 03/04/2023 CBC (INCL UDES DIFF/ PLT) hematocrit 35.8 % 35.0-4 5.0 normal Not Available [address], [address], 03/04/2023 06:37:33 03/03/20 23 03/04/2023 CBC (INCL UDES DIFF/ PLT) MCV 77.5 fL 80.0-1 00.0 low Not Available [facility] [address], [address], 03/04/2023 06:37:33 03/03/20 23 03/04/2023 CBC (INCL UDES DIFF/ PLT) MCH 24.2 pg 27.0-3 3.0 low Not Available [facility] [address], [address], 03/04/2023 06:37:33 03/03/20 23 03/04/2023 CBC (INCL UDES DIFF/ PLT) MCHC 31.3 g/dL 32.0-3 6.0 low Not Available [facility] [address], [address], 03/04/2023 06:37:33 03/03/20 23 03/04/2023 CBC (INCL UDES DIFF/ PLT) RDW 14.5 % 11.0-1 5.0 normal Not Available [facility] [address], [address], 03/04/2023 06:37:33 03/03/20 23 03/04/2023 CBC (INCL UDES DIFF/ PLT) platelet count 343 thous and/u L 140-40 0 normal Not Available [address], [address], 03/04/2023 06:37:33 03/03/20 23 03/04/2023 CBC (INCL UDES DIFF/ PLT) MPV 10.3 fL 7.5-12 .5 normal Not Available [address], [address], 03/04/2023 06:37:33 03/03/20 23 03/04/2023 CBC (INCL UDES DIFF/ PLT) absolute neutrophils 4352 cells /uL 1500-7 800 normal Not Available [address], [address], 03/04/2023 06:37:33 03/03/20 23 03/04/2023 CBC (INCL UDES DIFF/ PLT) absolute lymphocytes 1870 cells /uL 850-39 00 normal Not Available [address], [address], 03/04/2023 06:37:33 03/03/20 23 03/04/2023 CBC (INCL UDES DIFF/ PLT) absolute monocytes 449 cells /uL 200-95 0 normal Not Available [address], [address], 03/04/2023 06:37:33 03/03/20 23 03/04/2023 CBC (INCL UDES DIFF/ PLT) absolute eosinophils 68 cells /uL 15-500 normal Not Available [address], [address], 03/04/2023 06:37:33 03/03/20 23 03/04/2023 CBC (INCL UDES DIFF/ PLT) absolute basophils 61 cells /uL 0-200 normal Not Available [address], [address], 03/04/2023 06:37:33 03/03/20 23 03/04/2023 CBC (INCL UDES DIFF/ PLT) neutrophils 64 % normal Not Available [address], [address], 03/04/2023 06:37:33 03/03/20 23 03/04/2023 CBC (INCL UDES DIFF/ PLT) lymphocytes 27.5 % normal Not Available [address], [address], 03/04/2023 06:37:33 03/03/20 23 03/04/2023 CBC (INCL UDES DIFF/ PLT) monocytes 6.6 % normal Not Available [address], [address], 03/04/2023 06:37:33 03/03/20 23 03/04/2023 CBC (INCL UDES DIFF/ PLT) eosinophils 1.0 % normal Not Available [address], [address], 03/04/2023 06:37:33 03/03/20 23 03/04/2023 CBC (INCL UDES DIFF/ PLT) basophils 0.9 % normal Not Available [address], [address], 03/04/2023 06:37:33 03/03/2003/04/2023 TSH W/REF MORRIS TO FT4 TSH w/reflex to FT4 10.40 mIU/L high Refer ence Range > or = 20 Years 0.40- 4.50 Pregn garcia Range s First trime ster 0.26- 2.66 Secon d trime ster 0.55- 2.73 Third trime ster 0.43- 2.91 Not Available [address], [place], [address], 03/04/2023 06:37:35 03/03/20 23 03/04/2023 T4, FREE T4, free 0.9 NG/dL 0.8-1. 8 normal Not Available [facility] [address] [place], [address], 03/04/2023 06:37:35 Result Notes None recorded. Problems Name Problem SNOMED Code Status Onset Date Resolution Date Notes Provider Name and Address Organization Details Recorded Time Insomnia 183220984 Active 2020 Not Available [facility] 3 13:30:48 Ryne thyroiditis 90885958 Active 2020 Not Available [facility] 3 13:30:48 Thyroid stimulating hormone level above reference range 704575490 Active 2020 Not Available [facility] 3 13:30:48 Hypothyroidis m 53634218 Active 2021 Not Available [facility] 3 13:30:48 Anxiety 84896194 Active 2020 Not Available [facility] 3 13:30:48 Vitamin B12 deficiency (non anemic) 81336475 Active 2021 Not Available [facility] 3 13:30:48 Hyperparathyr oidism 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 [employer] 3 11:16:54 Problem Notes None recorded. Procedures Surgical History Date Name Laterality Status Provider Name and Address Organization Details Recorded Time Cholecystectomy completed Not Available [facility] 06/02/2022 13:30:04 Imaging Results None recorded. Procedure Notes None recorded. Medical Equipment None Reported. Allergies No known drug allergies Medications Name Sig Start Date Stop Date Status Note LastModified by Organization Details LastModified Time trazodone 50 mg tablet TAKE 1 TABLET BY MOUTH EVERY DAY 2022 active Not Available Not Available Not Avai lable ibuprofen 800 mg tablet TAKE 1 TABLET BY MOUTH EVERY 8 HOURS WITH FOOD NEEDED 02/16 completed Not Available Not Available Not Available hydrocodo ne 5 mg-acetam inophen 325 mg tablet TK 1 T PO Q 4 H PRF PAIN 09/16 completed Not Available Not Available Not Available Synthroid 100 mcg tablet TAKE 1 TABLET EVERY MORNING FOR HYPOTHYR OIDISM 2022 active Not Available Not Available Not Avai lable Tubersol 5 tub. unit/0.1 mL intraderm al injection solution Inject 0.1 mL every day by intrader mal route for 1 day. 05/28 completed Not Available Not Available Not Available Prilosec 20 mg capsule,d elayed release Take 1 capsule every day by oral route. 03/06 completed Not Available Not Available Not Available liothyron ine 5 mcg tablet TAKE 1 TABLET BY MOUTH TWICE DAILY 12/23 completed Not Available Not Available Not Available amoxicill in 500 mg tablet Take 1 tablet twice a day by oral route. active Not Available Not Available No t Available ondansetr on 8 mg disintegr ating tablet Place 1 tablet every 8 hours by translin gual route as needed. active Not Available Not Available No t Available levothyro xine 25 mcg tablet Take 1 tablet every day by oral route. active Not Available Not Available No t Available benzonata te 100 mg capsule 12/27 completed Not Available Not Available Not Available cyanocoba harpal (vit B-12) 1,000 mcg/mL injection solution ADMINIST ER 1 ML UNDER THE SKIN EVERY WEEK IN THE MORNING active Not Available Not Available No t Available insulin syringe U-100 with needle 1 mL 31 gauge x 5/16 USE TO INJECT B12 SUBCUTAN EOUS ONCE WEEKLY active Not Available Not Available No t Available ondansetr on 4 mg disintegr ating tablet Take 1 tablet every 12 hours by oral route as needed. active Not Available Not Available No t Available fluticaso ne propionat e 50 mcg/actua tion nasal spray,gato pension 12/27 completed Not Available Not Available Not Available sertralin e 50 mg tablet TAKE 1 TABLET BY MOUTH EVERY DAY active pt taking 1/2 tab prn Not Available Not Available Not Available loratadin e 10 mg tablet TK 1 T PO ONCE D PRN 03/15 completed Not Available Not Available Not Available Synthroid 04/27 completed Not Available Not Available Not Available Prilosec 10/01 completed Not Available Not Available Not Available cholecalc iferol (vitamin D3) 50 mcg (2,000 unit) capsule TAKE 2 CAPSULES BY MOUTH EVERY MORNING active Not Available Not Available No t Available Coby Allergy 2019 active Not Available Not Available Not Avai lable ID NOW COVID-19 Test Kit TEST DIRECTED 09/16 completed Not Available Not Available Not Available Gemmily 1 mg-20 mcg (24)/75 mg (4) capsule TK 1 C PO AT THE SAME TIME QD 08/25 completed Generic tetula. Not Available Not Available Not Available Vitals Date Recorded Body mass index (BMI) Body height Oxygen saturation Oxygen saturation in Arterial blood by Pulse oximetry Heart rate Body temperature Body weight Systolic blood pressure Diastolic blood pressure Provider Name and Address Organization Details Last Updated DateTime 2 33.9 kg/m2 172.72 cm 99 % 99 % 108 /min 97.7 [degF] 154428. 1 g 120 mm[Hg] 80 mm[Hg] Not Available [facility] 3 13:30:27 Date Recorded Body mass index (BMI) Body height Oxygen saturation Oxygen saturation in Arterial blood by Pulse oximetry Heart rate Respiratory rate Body temperature Body weight Systolic blood pressure Diastolic blood pressure Provider Name and Address Organization Details Last Updated DateTime 2 34 kg/m2 172.72 cm 98 % 98 % 110 /min 18 /min 98.3 [degF] 600908. 2 g 118 mm[Hg] 78 mm[Hg] Not Available [facility] 3 13:30:27 Date Recorded Body mass index (BMI) Body height Oxygen saturation Oxygen saturation in Arterial blood by Pulse oximetry Heart rate Respiratory rate Body temperature Body weight Systolic blood pressure Diastolic blood pressure Provider Name and Address Organization Details Last Updated DateTime 3 34.9 kg/m2 172.72 cm 98 % 98 % 97 /min 14 /min 98.5 [degF] 365777. 17 g 124 mm[Hg] 84 mm[Hg] Not Available [facility] 3 13:30:27 Date Recorded Body height Body mass index (BMI) Body weight Heart rate Body temperature Systolic blood pressure Diastolic blood pressure Provider Name and Address Organization Details Last Updated DateTime 3 172.72 cm 35.5 kg/m2 414606. 46 g 103 /min 98.7 [degF] 121 mm[Hg] 85 mm[Hg] Tavia Sorto MA [facility] [employer] 3 10:58:09 Date Recorded Body height Body mass index (BMI) Body weight Body temperature Heart rate Respiratory rate Oxygen saturation Oxygen saturation in Arterial blood by Pulse oximetry Pain severity - 0-10 verbal numeric rating [Score] - Reported Systolic blood pressure Diastolic blood pressure Provider Name and Address Organization Details Last Updated DateTime 3 172.72 cm 35.8 kg/m2 392283. 01 g 96.2 [degF] 75 /min 16 /min 99 % 99 % 0 120 mm[Hg] 82 mm[Hg] Tara Gayle RN [facility] [employer] 3 09:02:43 Social History Question Answer Notes LastModified by Organizat ion Details LastModified Time Tobacco Smoking Status Never Smoker Not Available [facility] [facility] 06/02/2022 13:29:58 Do You Have An Advance Directive? No MIGRATION.[id number] [id number] Information not available 06/02/2022 What Is Your Level Of Alcohol Consumption? Occasional MIGRATION.48122 98467 Information not available 06/02/2022 Is Blood Transfusion Acceptable In An Emergency? Yes Information not available 03/02/2023 What Is Your Level Of Caffeine Consumption? Moderate MIGRATION.18237 44594 Information not available 06/02/2022 How Much Tobacco Do You Chew? None MIGRATION.34674 73771 Information not available 06/02/2022 What Is Your Code Status? Full Code Information not available 03/02/2023 In The 14 Days Before Symptom Onset, Have You Had Close Contact With A Laboratory-confir med COVID-19 While That Case Was Ill? No MIGRATION.77605 24195 Information not available 06/02/2022 In The 14 Days Before Symptom Onset, Have You Had Close Contact With A Person Who Is Under Investigation For COVID-19 While That Person Was Ill? No MIGRATION.19878 02290 Information not available 06/02/2022 What Type Of Diet Are You Following? REGULAR MIGRATION.39602 40703 Information not available 06/02/2022 Which Illicit Or Recreational Drugs Have You Used? None MIGRATION.95878 57684 Information not available 06/02/2022 What Is The Highest Grade Or Level Of School You Have Completed Or The Highest Degree You Have Received? [id number] MIGRATION.32718 16964 Information not available 06/02/2022 What Is Your Occupation? [employer] MIGRATION.81776 43490 Information not available 06/02/2022 Have There Been Any Changes To Your Family Or Social Situation? No MIGRATION.84448 22766 Information not available 06/02/2022 What Is The Fluoride Status Of Your Home? Unknown MIGRATION.84505 67580 Information not available 06/02/2022 Are There Any Guns Present In Your Home? No MIGRATION.32096 26546 Information not available 06/02/2022 Do You Use Insect Repellent Routinely? Yes MIGRATION.80757 62414 Information not available 06/02/2022 Where Do You Live? [place]House MIGRATION.89471 69787 Information not available 06/02/2022 Do You Have A Medical Power Of Pharmacology Teacher? No MIGRATION.40662 30062 Information not available 06/02/2022 Do You Have Any Pets? Yes MIGRATION.34155 32087 Information not available 06/02/2022 What Is Your Relationship Status? Single MIGRATION.01239 97399 Information not available 06/02/2022 Do You Use Your Seat Belt Or Car Seat Routinely? Yes MIGRATION.98588 00982 Information not available 06/02/2022 Do You Have Smoke And Carbon Monoxide Detectors In Your Home? Yes MIGRATION.73518 17383 Information not available 06/02/2022 Are You Passively Exposed To Smoke? No MIGRATION.33056 03513 Information not available 06/02/2022 Are There Any Smokers In Your House? No MIGRATION.19865 71214 Information not available 06/02/2022 Do You Participate In Social Media? No MIGRATION.51879 35776 Information not available 06/02/2022 Do You Feel Stressed (tense, Restless, Nervous, Or Anxious, Or Unable To Sleep At Night)? [id number] MIGRATION.64563 38778 Information not available 06/02/2022 Do You Use Any Illicit Or Recreational Drugs? No MIGRATION.34991 65040 Information not available 06/02/2022 Do You Use Sunscreen Routinely? Yes MIGRATION.54625 49570 Information not available 06/02/2022 Have You Recently Traveled Abroad? No MIGRATION.12444 36298 Information not available 06/02/2022 Are You Currently In School? No MIGRATION.09865 92786 Information not available 06/02/2022 Do You Have Any Dietary Restrictions? No MIGRATION.75670 22067 Information not available 06/02/2022 Sex: Female Functional Status Question Answer Note LastModified by Organizat ion Details LastModified Time What is your exercise level? Occasional MIGRATION.[id number] Information not available 06/02/2022 Mental Status None recorded. Family History Relationship Description Onset Age of this Age Resolved Age Notes LastModified by Organization Details LastModified Time Mother Hypertensive disorder MIGRATION.[id number] Not available 06/02/2022 13:30:06 Mother Diabetes mellitus MIGRATION.500 [id number] Not available 06/02/2022 13:30:06 Mother Hypothyroidi sm MIGRATION.998 [id number] Not available 06/02/2022 13:30:06 Father Hypertensive disorder MIGRATION.183 [id number] Not available 06/02/2022 13:30:06 Father Hypothyroidi sm MIGRATION.663 [id number] Not available 06/02/2022 13:30:07 Medical History Condition Response BLINDNESS N RHEUMATIC FEVER N KIDNEY STONES N BLADDER PROBLEMS N MRSA N OTHER # 1 N POLIO N LUNG DISEASE/DISORDER N HISTORY OF DRUG ABUSE N COPD N RADIATION / CHEMOTHERAPY N Other # 2 N BLOOD DISEASES N SURGERY N EAR OR HEARING PROBLEMS N MUMPS N SHINGLES N BOWEL PROBLEMS N FEMALE PROBLEMS / INFECTIONS N DEPRESSION (INCLUDING POST ) Y STROKE/TIA N THYROID DISEASE N ULCERS N BENIGN PROSTATIC HYPERPLASIA N MEASLES N CERVICALGIA N TB SKIN TEST N HYPOTENSION N MYOCARDIAL INFARCTION N OBESITY N PARAPELGIA N GERD/NAUSEA N ANEURYSM N URINARY/BLADDER/KIDNEY PROBLEMS N CORONARY ARTERY DISEASE (CAD) N MENIERE'S DISEASE N ADDICTION CONCERNS N ENDOMETRIOSIS N USE OF BLOOD THINNERS N SKIN PROBLEMS N EMPHYSEMA N GASTROINTESTINAL DISORDER N MUSCLE,JOINT OR BONE PROBLEMS N GASTROINTESTINAL BLEEDING N BLOOD CLOTS N ASTHMA N CATARACTS N ERECTILE DYSFUNCTION N GI PROBLEMS N CHF N Low Testosterone N NEUROPATHY N INFERTILITY N AIDS/HIV N FRACTURES N CHEMOTHERAPY / RADIATION N VISION/EYE PROBLEMS N LIVER DISEASE N MALE HYPOGONADISM N HYPERTENSION N TOURETTE'S N ANXIETY DISORDER N BLOOD TRANSFUSION N ANEMIA/BLOOD DISORDER N CHRONIC EAR INFECTIONS N BRONCHITIS N TUBERCULOSIS N GLAUCOMA N FOOT PROBLEM N DIVERTICULITIS N CHICKENPOX N SLEEP APNEA N ALLERGIES/HAYFEVER N INFECTIOUS DISEASE N HEART ARRHYTHMIA N PROSTATE N INSOMNIA N HIGH CHOLESTEROL / HYPERLIPIDEMIA N HYPERTHYROIDISM Y EYE PROBLEMS N EATING DISORDER N EDEMA N CHRONIC PAIN SYNDROME N CONSTIPATION N CAROTID BLOCKAGE N BACK / NECK PROBLEMS N HAVE YOU BEEN HOSPITALIZED OR SEEN IN [facility] IN THE PAST YEAR ? N ATHEROSCLEROSIS N BREAST PROBLEMS N DIALYSIS N ECZEMA N FIBROMYALGIA N OSTEOPOROSIS N ARTHRITIS N NO SIGNIFICANT PAST MEDICAL HISTORY N APPENDICITIS N DIABETES, TYPE N BAD TEETH N HEARTBURN / REFLUX N ADD/ADHD N AUTISM SPECTRUM DISORDER (ASD) N HEPATITIS / LIVER DISEASE N PULMONARY DISEASE N GOUT N SLEEP DISORDER N ALZHEIMER'S DISEASE N PAIN N HERPES N DEMENTIA N HEADACHES/MIGRAINES N SEIZURES/EPILEPSY N VASCULAR DISEASE N PACEMAKER N DIZZINESS N HEART DISEASE/HEART PROBLEMS N KIDNEY DISEASE N DEVELOPMENTAL OR BEHAVIORAL DISORDERS N MULTIPLE SCLEROSIS N SCARLET FEVER N MENTAL DISORDER/ILLNESS N CARDIAC ARRHYTHMIA N CANCER: SPECIFY N PNEUMONIA N ATRIAL FIBRILLATION N Gall Stones N PULMONARY EMBOLISM N AUTOIMMUNE DISEASE N Gynecological History Statement/Question Response Abnormal Pap N Flow Moderate Date of LMP 02/16/2023 STIs/STDs N Dislike of Light during Menstrual Headac he N Do your menstrual headaches get severe N Date of Last Pap 04/04/2019 Duration of Flow (days) 2 Most Recent Mammogram Current Control Method None Age at Menarche 12 Breast Problems none Frequency of Cycle (Q days) 23 Sexually Active? N Do you get headaches during your period N Menses Monthly Y Date of Last Pap Smear Obstetrics History GPAL:G 0 P 0 0 0 0 Immunizations Vaccine Type Date Status Note Provider Nam e and Address Organization Details Recorded Time influenza, unspecified formulation 3 completed Tara Short NP [address] [facility], [place] [address], [place], [address], [facility] [employer] 03/02/2023 09:36:25 SARS-COV-2 (COVID-19) vaccine, UNSPECIFIED 1 completed Not Available [facility] 06/02/2022 13:33:44 SARS-COV-2 (COVID-19) vaccine, UNSPECIFIED 1 completed Not Available [facility] 06/02/2022 13:33:44 SARS-COV-2 (COVID-19) vaccine, UNSPECIFIED 1 completed Not Available [facility] 06/02/2022 13:33:44 Influenza, split virus, quadrivalent, preservative 1 completed Not Available [facility] 06/02/2022 13:33:44 Influenza, split virus, quadrivalent, PF 9 completed Not Available [facility] 06/02/2022 13:33:44 Past Encounters Encounter ID Performer Location Encounter Start Date Encounter Closed Date Diagnosis/Indication Diagnosis SNOMED-CT Code Diagnosis ICD10 Code Diagnosis Note [id number] [facility] [address] [address] 09/16/2020 00:00:00 09/16/2020 17:14:56 [id number] [facility] [address] [address] 11/11/2020 00:00:00 11/11/2020 09:49:57 [id number] [facility] [address] [address] 03/06/2021 00:00:00 03/06/2021 09:38:20 [id number] [facility] [address] [address] 03/10/2021 00:00:00 03/17/2021 08:15:21 [id number] [facility] [address] [place] [address] 06/01/2021 00:00:00 06/01/2021 09:46:20 [id number] [facility] [address] [address] 07/22/2021 00:00:00 07/22/2021 18:37:24 [id number] [facility] [address] [place] [address] 07/31/2021 00:00:00 07/31/2021 10:58:39 [id number] [facility] [address] [place] [address] 08/25/2021 00:00:00 08/25/2021 12:43:30 [id number] [facility] [address] [place] [address] 02/16/2022 00:00:00 02/16/2022 10:17:55 [id number] [facility] [address] [address] 03/16/2022 00:00:00 03/16/2022 12:41:54 [id number] [facility] [address] [address] 04/27/2022 00:00:00 04/27/2022 12:04:26 [id number] Reshma Llamas MD [facility] [address] [place] [address] 12/23/2022 10:48:46 12/23/2022 11:26:27 Hypothyroidism 62258456 E03.9 TSH and FT4 in ideal range- continue on synthroid 100 mcg daily. She was reminded to take her synthroid on empty stomach with glass of water and wait one hour to eat or have her coffee in morning and up to 4 hours if ever taking any heartburn or reflux medication s to help optimize absorption . Discussed paleo like diet with restrictio n of GMOs to help with energy and to optimize absorption of vitamins and minerals and reduce inflammati on. Vitamin B1 2 deficiency (non anemic) [id number] E53.8 Continue on B12 injections as she has more energy and focus overall. Vitamin D deficiency 347 48469 E55.9 Vit D low normal- goal up to 50 ng/mL to optimize bone and immune health- recommend 6558-1743 IU daily. Spent up to 25 minutes preparing to see the patient (eg, review of tests), obtaining and/or reviewing separately obtained history, performing a medically appropriat e examinatio n and evaluation , counseling and educating the patient, ordering medication s, tests, along with documentin g clinical informatio n in the electronic health record, independen tly interpreti ng results and communicat ing results to the patient. Patient can be followed by PCP - she/he is aware of my resignatio n and last day of January 14. If needed his/her PCP can refer patient to another endocrinol ogist in the area. All questions /concerns answered and refills necessary at visit today. [id number] Tara Short NP [facility] [address] [address] 03/02/2023 08:55:14 03/02/2023 09:46:53 Adult health examination [id number] Z00.01 Encouraged well balanced meals, active lifestlye, and routine vision and dental appts. Anxiety 29463627 F41.9 Trazodone 50 mg po nightly.Se rtraline 50 mg po daily. States she is using 1/2 tab po prn. 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 Insomnia [id number] G47.0 0 trazodone helps. Vitamin B1 2 deficiency (non anemic) 93034690 E53.[address] Llamas, she is now gone. B12 1000 mcg in sq weekly. Vitamin D deficiency 347 33469 E55.9 12/09/22 was 32, normal. Hyperlipid emia screening 836262407 Z13.220 Anemia screening 8885057 07 Z13.0 Health Concerns Section Related Observation LastModified by Organization Detai ls LastModified Time None Recorded Concern Status LastModified by Organization Details LastModified Time None Recorded Advance Directives Directive N: Payers Encounter Date Sequence Insurance Name Policy Number Policy Alfaro Covered Member ID Alfaro Member ID Guarantor Name 12/23/[address] [facility] ON OR AFTER 10/02/20 (MEDICAID REPLACEMENT - HMO) [id number] Kym Lyons [id number] Kym Lyons 03/02/[address] [facility] ON OR AFTER 10/02/20 (MEDICAID REPLACEMENT - HMO) [id number] Kym Lyons [id number] Kym Lyons Notes Date Note Type Note Provider Name and Address Organization Details Recorded Time 12/23/2022 text/html 27 yo female com es in for follow up in management of hypothyroidism and B12 def. last seen in February at that time we had patient continue 100 mcg of synthroid along with addition of low dose liothyronine BID. we continued B12 injections. She has regular cycles. She ran out of B12 scripts and felt good on these- seemed to give her a boost. She has gained 5 pounds since her last visit. She ended up stopping the T3 hormone- it caused hot flashes- she ended up stopping. labs from 12/09/22:TSH of 1.44 uU/mlFT4 of 1.2 ng/dLvit D 32 ng/mLFT3 of 3.0 pg/MLB12/folate normalTPO 333 IU/mLglucose 84 mg/dLCr normalLFT normalcalcium 9.1 mg/dl Reshma Llamas MD [address] [facility], [place], [address], [facility] [employer] 12/23/2022 11:21:48 03/02/2023 text/html Here for huma s visit and check up on meds. Allergies- On Coby. Takes every night. States she might be allergic to the dogs in the house. If she doesn't take her Coby she will get stuffy nose and itchy ears. Never had an allergy panel - not interested. vit d- Still taking that every day for Ryne's. No concerns. b12- Still doing once a week for Ryne's. No concerns. Could discontinue but states she gets more tired if she doesn't. Anxiety- Takes sertraline. States mental fog when she takes it consistently. Will only take it as needed. Would prefer as needed medication rather than daily. Reports panic attacks a couple times a month (states this is an improvement). Not interested in therapist. Denies heart palpitations. Denies thoughts of harming self or others. Trazodone - Takes every night to help with sleep. No concerns. Reports about 7-8 hours of sleep a night. No longer waking up in the middle of the night with panic attacks. Feels well rested after sleep. Thyroid- On Synthroid. Has not had endo since Dr. Llamas left. Is requesting referral for another endo today. States thyroid levels are fine. No concerns. Reports cold intolerance, fatigue some days. Denies weight gain or night sweats. Diet- States mom who lives with her is on keto so she is eating lots of keto meals. Tried gluten free to help with Ryne's but states too expensive and didn't notice difference in a month of trying. Reports occasional alcohol use (once every couple months - one mixed drink). Denies smoking or any other drug use. Drinks about 64oz of water a day. 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 COVID booster Feb 2023.Well woman- Hasn't had one in 3 years. Does not have gyne on new insurance. Looking at going to [facility] [place].Labs- Thryoid drawn in December.Vision - utd. Wears glasses daily. Last visit was over the summer.Dental- utd Tara Short NP [address] [facility], [place], [address], [facility] 03/02/2023 09:44:59 OBGyn Episode No OBEpisode recorded.
--- OUTSIDE RECORDS SUMMARY | 2024-05-24 15:41 | XMS_ITS | Patient Health Summary ---
Author Organization [facility] Address [address] [place] [address] Care Team Providers Care Sediment Remediation Consultant Name Role Phone Brenda Mcdonough MD Primary Care Provider Note from [facility],non-owned Affiliates and Associated Physician Practices is amultiple site organization consisting of ambulatory clinics and hospital sitesin [place], [place], [place] and [place]. This disclosure is being madepursuant to the Care Everywhere program and may not contain all information available regarding this patient. Last updated 17.[facility] Allergies No known active allergies Medications * Be aware that medications may not be up to date on this document. Alwaysverify current medications with the patient. * lansoprazole (PREVACID) 15 MG capsule Take 15 mg by mouth daily before breakfast. Social History Tobacco Use Types Packs/Day Years Used Date Smoking Tobacco: Never Assessed Sex and Gender Information Value Date Recorded Sex Assigned at Not on file Gender Identity Not on file Sexual Orientation Not on file Last Filed Vital Signs Vital Sign Reading Time Taken Comments Blood Pressure 141/80 05/15/2012 10:39 PM TV PRODUCTION ASSISTANT Pulse 84 05/15/2012 10:39 PM TV PRODUCTION ASSISTANT Temperature 37.1 C (98.8 F) 05/15/2012 10:39 PM TV PRODUCTION ASSISTANT Respiratory Rate 16 05/15/2012 10:3 9 PM TV PRODUCTION ASSISTANT Oxygen Saturation 99% 05/15/2012 10: 39 PM TV PRODUCTION ASSISTANT Inhaled Oxygen Concentration - - Weight 103.2 kg (227 lb 8.2 oz) 013 10:39 PM TV PRODUCTION ASSISTANT Height 169.2 cm (5' 6.63 ) 05/03/2011 2:00 PM CS T Body Mass Index - - Procedures * INFLUENZA A+B ANTIGEN RAPID W REFLX CULTURE(Performed 05/15/2012) * VIRAL CULTURE RESPIRATORY(Performed 05/15/2012) * US KIDNEY(Performed 05/03/2011) Performed for Calculus of kidney * CT ABDOMEN PELVIS WO CONTRAST(Performed 03/21/2011) Performed for Flank pain * COMPREHENSIVE METABOLIC PANEL(Performed 03/21/2011) * DIFFERENTIAL MANUAL(Performed 03/21/2011) * CBC W AUTO DIFFERENTIAL(Performed 03/21/2011) * HCG URINE QUALITATIVE(Performed 03/21/2011) * URINALYSIS REFLEX TO MICROSCOPIC NO CULTURE(Performed 03/21/2011) * CULTURE URINE(Performed 03/21/2011) Results * INFLUENZA A+B ANTIGEN RAPID W REFLX CULTURE (05/15/2012 10:57 PM TV PRODUCTION ASSISTANT) Pathologist [facility] Influenza A Antigen Negative Negative 05/15/2012 11:22 PM TV PRODUCTION ASSISTANT [facility] Influenza B Antigen Negative Negative 05/15/2012 11:22 PM TV PRODUCTION ASSISTANT [facility] Miscellaneous samples (specimen) NASOPHARYNGEAL SWAB / Unknown 05/15/2012 10:57 PM TV PRODUCTION ASSISTANT 05/15/2012 11:02 PM TV PRODUCTION ASSISTANT Narrative [facility] - 05/15/2012 11:22 PM TV PRODUCTION ASSISTANT Test has reflexed to Viral Culture Respiratory. Reshma Parrish DO LAB - MICROBIOLOGY ORDERABLES Performing Organization Address City/State/[facility] Co de Phone Number [facility] [place] [address] * VIRAL CULTURE RESPIRATORY (05/15/2012 10:57 PM TV PRODUCTION ASSISTANT) Pathologist [facility] Viral Culture Respiratory No Virus isolated No Virus isolated 05/18/2012 2:49 PM TV PRODUCTION ASSISTANT [facility] Miscellaneous samples (specimen) NASOPHARYNGEAL SWAB / Unknown 05/15/2012 10:57 PM TV PRODUCTION ASSISTANT 05/15/2012 11:02 PM TV PRODUCTION ASSISTANT Reshma Parrish DO LAB - MICROBIOLOGY ORDERABLES [facility] [place] [address] * US KIDNEY (05/03/2011 1:36 PM TV PRODUCTION ASSISTANT) Anatomical Region Laterality Modality Abdomen Ultrasound 05/03/2011 1:52 PM TV PRODUCTION ASSISTANT Impressions 05/03/2011 4:37 PM TV PRODUCTION ASSISTANT Mild separation of the right renal pelvis. No hydroureter or stones demonstrated. Davidson Robert MD Narrative 05/03/2011 4:37 PM TV PRODUCTION ASSISTANT EXAMINATION: Renal ultrasound COMPARISON: 05/14/2008 FINDINGS: Renal cortical echogenicity is normal. The right renal pelvis remains mildly without calyceal distention. No masses or stones are seen. The ureters are not dilated. Length: Right kidney 10.9 x 4 x 4 cm Left kidney 11.7 x 4.1 x 4.5 cm Bladder 5.8 x 5.1 x 8.2 cm Bladder Thickness 3 mm The mean renal length for children between ages 15 and 16 is 10.93 cm with a single standard deviation of 0.76. Both kidneys have grown since exam. Procedure Note Nabil Mendoza MD - 05/03/2011 EXAMINATION: Renal ultrasound COMPARISON: 05/14/2008 FINDINGS: Renal cortical echogenicity is normal. The right renal pelvis remains mildly without calyceal distention. No masses or stones are seen. The ureters are not dilated. Length: Right kidney 10.9 x 4 x 4 cm Left kidney 11.7 x 4.1 x 4.5 cm Bladder 5.8 x 5.1 x 8.2 cm Bladder Thickness 3 mm The mean renal length for children between ages 15 and 16 is 10.93 cm with a single standard deviation of 0.76. Both kidneys have grown since exam. IMPRESSION Mild separation of the right renal pelvis. No hydroureter or stones demonstrated. Davidson Robert MD Simon Stock MD US ORDERABLES * CT ABDOMEN AND PELVIS NON IV CONTRAST (03/21/2011 6:24 PM TV PRODUCTION ASSISTANT) Anatomical Region Laterality Modality Abdomen, Pelvis Computed Tomogra phy 03/22/2011 8:49 AM TV PRODUCTION ASSISTANT Impressions 03/22/2011 8:49 AM TV PRODUCTION ASSISTANT 1. Mild left hydroureteronephrosis down to a 3 mm calculus at the left ureterovesical junction measuring 279 Hounsfield units. 2. Global cortical thinning right kidney. 3. High riding cecum located in the right upper quadrant with normal-appearing appendix. Narrative 03/22/2011 8:49 AM TV PRODUCTION ASSISTANT Noncontrast CT scan of the abdomen and pelvis performed March 21, 2011. History: Left flank pain. Helical axial sections were obtained from the dome of the diaphragm through the symphysis pubis without the use of intravenous oral contrast. Coronal reformatted images were created. No prior CT scans are available for comparison. Mineral dependent atelectasis is seen in both lower lobes. The lungs are otherwise clear. Without the use of intravenous contrast evaluation of the solid visceral organs is suboptimal. The liver and spleen are of normal size and uniform attenuation without focal parenchymal abnormality. The gallbladder and pancreas are normal in appearance. There is no evidence of adrenal mass. There is mild global cortical thinning involving the smaller right kidney. There is mild fullness of the extrarenal pelvis on the right. There is no evidence of right nephrolithiasis or abnormal right perinephric fluid collection. There is evidence of mild left hydroureteronephrosis down to the level of a 3 mm calculus at the left ureterovesical junction. This measures approximate joint 79 Hounsfield units. No other calculi are seen in relationship to the urinary tract. No abnormal perinephric fluid collections are seen on the left. The bladder contains a moderate amount of urine and is grossly unremarkable. The right ovary slightly larger than the left suggesting the presence of a dominant follicle on the right. The uterus is anteverted and otherwise unremarkable. Without the use of oral contrast evaluation of the gastrointestinal tract is suboptimal. There is no evidence of intestinal obstruction, intestinal perforation, or free intraperitoneal fluid. The cecum is located in the right upper quadrant of the abdomen as is the normal appendix. The duodeno jejunal junction appears to be in a normal location. There is a 2 mm calcification noted anterior to the right external iliac vessels on image #79. This is not related to the right ureter and may represent a tiny phlebolith. Abdominal aorta and inferior vena cava are unremarkable in appearance. There is mild retroversion of the femoral heads. The bony structures are intact. Procedure Note Claudia Hendrickson MD - 03/22/[address] scan of the abdomen and pelvis performed March 21, 2011. History: Left flank pain. Helical axial sections were obtained from the dome of the diaphragm through the symphysis pubis without the use of intravenous oral contrast. Coronal reformatted images were created. No prior CT scans are available for comparison. Mineral dependent atelectasis is seen in both lower lobes. The lungs are otherwise clear. Without the use of intravenous contrast evaluation of the solid visceral organs is suboptimal. The liver and spleen are of normal size and uniform attenuation without focal parenchymal abnormality. The gallbladder and pancreas are normal in appearance. There is no evidence of adrenal mass. There is mild global cortical thinning involving the smaller right kidney. There is mild fullness of the extrarenal pelvis on the right. There is no evidence of right nephrolithiasis or abnormal right perinephric fluid collection. There is evidence of mild left hydroureteronephrosis down to the level of a 3 mm calculus at the left ureterovesical junction. This measures approximate joint 79 Hounsfield units. No other calculi are seen in relationship to the urinary tract. No abnormal perinephric fluid collections are seen on the left. The bladder contains a moderate amount of urine and is grossly unremarkable. The right ovary slightly larger than the left suggesting the presence of a dominant follicle on the right. The uterus is anteverted and otherwise unremarkable. Without the use of oral contrast evaluation of the gastrointestinal tract is suboptimal. There is no evidence of intestinal obstruction, intestinal perforation, or free intraperitoneal fluid. The cecum is located in the right upper quadrant of the abdomen as is the normal appendix. The duodeno jejunal junction appears to be in a normal location. There is a 2 mm calcification noted anterior to the right external iliac vessels on image #79. This is not related to the right ureter and may represent a tiny phlebolith. Abdominal aorta and inferior vena cava are unremarkable in appearance. There is mild retroversion of the femoral heads. The bony structures are intact. IMPRESSION 1. Mild left hydroureteronephrosis down to a 3 mm calculus at the left ureterovesical junction measuring 279 Hounsfield units. 2. Global cortical thinning right kidney. 3. High riding cecum located in the right upper quadrant with normal-appearing appendix. Jolly Vizcaino MD CT ORDERABLES * (ABNORMAL) COMPREHENSIVE METABOLIC PANEL (03/21/2011 6:00 PM TV PRODUCTION ASSISTANT) Sodium 146(H) 137 - 145 mmol/L [facility] Potassium 3.8 3.5 - 5.1 mmol/L [facility] Chloride 106 98 - 107 mmol/L [facility] CO2 26.6 18 - 27 mmol/L [facility] Glucose 84 70 - 106 mg/dl [facility] BUN 11.4 8 - 21 mg/dl [facility] Calcium 9.2 9.2 - 10.7 mg/dl [facility] Bilirubin Total 0.4(L) 0.6 - 1.4 mg/dl [facility] Protein Total 7.1 6.3 - 8.6 gm/dl [facility] Albumin 4.3 3.7 - 5.6 gm/dl [facility] ALT 13 5 - 30 Units/L [facility] AST 16 10 - 30 Units/L [facility] Alkaline Phosphatase 113 70 - 230 Units/L [facility] Creatinine 0.71 0.50 - 1.06 mg/dl [facility] BLOOD SPECIMEN / Unknown 03/21/2011 6:00 PM TV PRODUCTION ASSISTANT 03/21/2011 6:07 PM TV PRODUCTION ASSISTANT Narrative [facility] - 03/21/2011 6:24 PM TV PRODUCTION ASSISTANT AUTO REORDER DUE TO SPECIMEN REJECT Jolly Vizcaino MD LAB - CHEMISTRY [facility] Organization Address City/State/[facility] Co de Phone Number [facility] [address] [place] [address] * (ABNORMAL) DIFFERENTIAL MANUAL (03/21/2011 5:40 PM TV PRODUCTION ASSISTANT) Comment Manual Diff Done [facility] Neutrophils % Manual 70(H) 24 - 66 % [facility] Lymphocytes % Manual 21(L) 22 - 61 % [facility] Monocytes % Manual 7 3 - 15 % [facility] Eosinophils % Manual 1 0 - 10 % [facility] Promyelocytes % Manual 1 % [facility] RBC Morphology Normal [facility] BLOOD SPECIMEN / Unknown 03/21/2011 5:40 PM TV PRODUCTION ASSISTANT 03/21/2011 6:14 PM TV PRODUCTION ASSISTANT Jolly Vizcaino MD LAB - HEMATOLOGY ORD ERABLES Performing Organization Address [facility] Co de Phone Number [facility] [address] [place] [address] * CBC W AUTO DIFFERENTIAL (03/21/2011 5:40 PM TV PRODUCTION ASSISTANT) WBC 14.10 4.5 - 14.5 K/cumm [facility] RBC 4.43 4.10 - 5.10 mill/cumm [facility] Hemoglobin 12.4 12.0 - 16.0 gm/dl [facility] Hematocrit 38.1 36.0 - 47.0 % [facility] MCV 86.0 78.0 - 102.0 cu microns [facility] MCH 28.0 25.0 - 35.0 uug [facility] MCHC 32.5 31.0 - 37.0 % [facility] RDW 13.7 % [facility] MPV 10.2 fl [facility] Platelet Count 378 100 - 400 K/cumm [facility] Comment Manual Diff Done [facility] Blood specimen (specimen) BLOOD SPECIMEN / Unknown 03/21/2011 5:40 PM TV PRODUCTION ASSISTANT 03/21/2011 5:43 PM TV PRODUCTION ASSISTANT Jolly Vizcaino MD LAB - HEMATOLOGY ORD ERABLES Performing Organization Address [facility] Co de Phone Number [facility] [address] [place] [address] * HCG URINE QUALITATIVE (03/21/2011 5:20 PM TV PRODUCTION ASSISTANT) HCG Qual Urine Negative Negative [facility] Urine specimen (specimen) URINE / Unknown 03/21/2011 5:20 PM TV PRODUCTION ASSISTANT 03/21/2011 5:27 PM TV PRODUCTION ASSISTANT Jolly Vizcaino MD LAB - URINALYSIS ORD ERABLES Performing Organization Address City/[facility] Co de Phone Number [facility] [address] [place] [address] * URINALYSIS ROUTINE AUTO (03/21/2011 5:17 PM TV PRODUCTION ASSISTANT) Color UA YELLOW [facility] Character UA CLEAR [facility] Specific Broad Top UA 1.020 1.003 - 1.030 [facility] pH UA 6.5 5.0 - 8.0 [facility] Protein UA NEGATIVE Negative [facility] Glucose UA NEGATIVE Negative gm/dl [facility] Ketone UA NEGATIVE Negative [facility] Blood UA TRACE-INTAC T Negative [facility] Bilirubin UA NEGATIVE Negative [facility] WBC UA 0-2 /HPF [facility] RBC UA 2-5 /HPF [facility] Epithelial Cell UA 3-5 /HPF [facility] Mucus UA rare [facility] Bacteria UA occ [facility] Leukocyte UA NEGATIVE [facility] Nitrite UA NEGATIVE [facility] Urobilinogen UA 0.2 <=1.0 EU/dl [facility] URINE SPECIMEN OBTAINED BY CLEAN CATCH PROCEDURE / Unknown 03/21/2011 5:17 PM TV PRODUCTION ASSISTANT 03/21/2011 5:27 PM TV PRODUCTION ASSISTANT Jolly Vizcaino MD LAB - URINALYSIS ORD ERABLES Performing Organization Address City/[facility]/ZIP Co de Phone Number [facility] [address] [place] [address] * CULTURE URINE (03/21/2011 5:17 PM TV PRODUCTION ASSISTANT) Result [facility] Comment: Final CULTURE <10,000 CFU/mL urogenital/skin smitha Urine specimen (specimen) URINE SPECIMEN OBTAINED BY CLEAN CATCH PROCEDURE / Unknown 03/21/2011 5:17 PM TV PRODUCTION ASSISTANT 03/21/2011 5:27 PM TV PRODUCTION ASSISTANT Narrative Resulting Agency Comment Performed By [facility];[address] [place] [address];[place] [address] Jolly Vizcaino MD LAB - MICROBIOLOGY O RDERABLES [facility] [address] [place] [address] Care Teams Sediment Remediation Consultant Relationship Specialty Start Date End Date Brenda Mcdonough MD [address] [place] [id number] PCP - General 03/21/11
== END 2024-05-24 15:38 | disposition home or self-care (01) ==
PROVIDERS: PCP Nurse Practitioner Family; Visit Provider Nurse Practitioner Family
DX: M47.896 Other spondylosis, lumbar region (principal)
CPT/HCPCS: 72100

== ENCOUNTER 2024-05-25 09:53 | Outpatient (CLI) | payer OTHER, SELFPAY ==
--- NOTE | ~2024-05-25 | US_ITS ---
EXAMINATION:US venous doppler LE RT INDICATION:Right leg pain TECHNIQUE: Multiple grayscale, color flow and Doppler images of the right lower extremity deep venous systems were obtained and reviewed. COMPARISON:No prior studies for comparison. FINDINGS: The common femoral, superficial femoral and popliteal veins demonstrate normal respiratory variation, augmentation and compressibility. Color flow is also seen within the posterior tibial, pe roneal, greater saphenous and profunda veins. IMPRESSION: 1: No lower extremity deep venous thrombosis. Reviewed, dictated and finalized at location [facility] ATT[facility]
--- OUTSIDE RECORDS SUMMARY | 2024-05-25 10:28 | XMS_ITS | Clinical Summary ---
Author Organization [facility] Address [address] [place] [place] [address] Care Team Providers Care It Trainee Name Role Phone Brenda Mcdonough MD Primary Care Provider [phone] [facility],non-owned Affiliates and Associated Physician Practices is amultiple site organization consisting of ambulatory clinics and hospital sitesin [place], [place], [place] and [place]. This disclosure is being madepursuant to the Care Everywhere program and may not contain all information available regarding this patient. Last updated 17.[facility] Allergies No known active allergies Medications * [...] Comments Blood Pressure 141/80 05/15/2012 10:39 PM CARDIOVASCULAR LAB DIRECTOR Pulse 84 05/15/2012 10:39 PM CARDIOVASCULAR LAB DIRECTOR Temperature 37.1 C (98.8 F) 05/15/2012 10:39 PM CARDIOVASCULAR LAB DIRECTOR Respiratory Rate 16 05/15/2012 10:3 9 PM CARDIOVASCULAR LAB DIRECTOR Oxygen Saturation 99% 05/15/2012 10: 39 PM CARDIOVASCULAR LAB DIRECTOR Inhaled Oxygen Concentration - - Weight 103.2 kg (227 lb 8.2 oz) 013 10:39 PM CARDIOVASCULAR LAB DIRECTOR Height 169.2 cm (5' 6.63 ) 05/03/2011 [...] age to complete this topic Care Teams It Trainee Relationship Specialty Start Date End Date Brenda Mcdonough MD [address] [place] [address] PCP - General 03/21/11
--- OUTSIDE RECORDS SUMMARY | 2024-05-25 10:28 | XMS_ITS | Referral Summary ---
Author Organization [facility] Address [address] [place] [address] Care Team Providers Care Stripper Shovel Operator Name Role Phone Brenda Mcdonough MD Primary Care Provider [phone] Source Comments [facility],non-owned Affiliates and Associated Physician Practices is amultiple site organization consisting of ambulatory clinics and hospital sitesin [place], [place], [place] and [place]. This disclosure is being madepursuant to the Care Everywhere program and may not contain all information available regarding this patient. Last updated 17.[facility] Allergies No known active allergies [...] Comments Blood Pressure 141/80 05/15/2012 10:39 PM MENDER HAND Pulse 84 05/15/2012 10:39 PM MENDER HAND Temperature 37.1 C (98.8 F) 05/15/2012 10:39 PM MENDER HAND Respiratory Rate 16 05/15/2012 10:3 9 PM MENDER HAND Oxygen Saturation 99% 05/15/2012 10: 39 PM MENDER HAND Inhaled Oxygen Concentration - - Weight 103.2 kg (227 lb 8.2 oz) 013 10:39 PM MENDER HAND Height 169.2 cm (5' 6.63 ) 05/03/2011 2:00 PM CS T Body Mass Index - - Plan of Treatment Not on file Care Teams Stripper Shovel Operator Relationship Specialty Start Date End Date Brenda Mcdonough MD [address] [place] [address] PCP - General 03/21/11
--- OUTSIDE RECORDS SUMMARY | 2024-05-25 10:28 | XMS_ITS | Patient Health Summary ---
Author Organization [facility] Address [address] [place] [address] Care Team Providers Care Networking Technology Instructor Name Role Phone Brenda Mcdonough MD Primary Care Provider [phone] Note from [facility],non-owned Affiliates and Associated Physician Practices is amultiple site organization consisting of ambulatory clinics and hospital sitesin [place], [place], [place] and [place]. This disclosure is being madepursuant to the Care Everywhere program and may not contain all information available regarding this patient. Last updated 17.[facility] Allergies No known active allergies Medications [...] Comments Blood Pressure 141/80 05/15/2012 10:39 PM ASSISTANT TO THE VICE PRESIDENT Pulse 84 05/15/2012 10:39 PM ASSISTANT TO THE VICE PRESIDENT Temperature 37.1 C (98.8 F) 05/15/2012 10:39 PM ASSISTANT TO THE VICE PRESIDENT Respiratory Rate 16 05/15/2012 10:3 9 PM ASSISTANT TO THE VICE PRESIDENT Oxygen Saturation 99% 05/15/2012 10: 39 PM ASSISTANT TO THE VICE PRESIDENT Inhaled Oxygen Concentration - - Weight 103.2 kg (227 lb 8.2 oz) 013 10:39 PM ASSISTANT TO THE VICE PRESIDENT Height 169.2 cm (5' 6.63 ) 05/03/2011 [...] RAPID W REFLX CULTURE (05/15/2012 10:57 PM ASSISTANT TO THE VICE PRESIDENT) Pathologist [facility] Influenza A Antigen Negative Negative 05/15/2012 11:22 PM ASSISTANT TO THE VICE PRESIDENT [facility] Influenza B Antigen Negative Negative 05/15/2012 11:22 PM ASSISTANT TO THE VICE PRESIDENT [facility] Miscellaneous samples (specimen) NASOPHARYNGEAL SWAB / Unknown 05/15/2012 10:57 PM ASSISTANT TO THE VICE PRESIDENT 05/15/2012 11:02 PM ASSISTANT TO THE VICE PRESIDENT Narrative [facility] - 05/15/2012 11:22 PM ASSISTANT TO THE VICE PRESIDENT Test has reflexed to Viral Culture Respiratory. Reshma Parrish DO LAB - MICROBIOLOGY ORDERABLES Performing Organization Address City/State/[facility] Co de Phone Number [facility] [place] [address] * VIRAL CULTURE RESPIRATORY (05/15/2012 10:57 PM ASSISTANT TO THE VICE PRESIDENT) Pathologist [facility] Viral Culture Respiratory No Virus isolated No Virus isolated 05/18/2012 2:49 PM ASSISTANT TO THE VICE PRESIDENT [facility] Miscellaneous samples (specimen) NASOPHARYNGEAL SWAB / Unknown 05/15/2012 10:57 PM ASSISTANT TO THE VICE PRESIDENT 05/15/2012 11:02 PM ASSISTANT TO THE VICE PRESIDENT Reshma Parrish DO LAB - MICROBIOLOGY ORDERABLES [facility] [place] [address] * US KIDNEY (05/03/2011 1:36 PM ASSISTANT TO THE VICE PRESIDENT) Anatomical Region Laterality Modality Abdomen Ultrasound 05/03/2011 1:52 PM ASSISTANT TO THE VICE PRESIDENT Impressions 05/03/2011 4:37 PM ASSISTANT TO THE VICE PRESIDENT Mild separation of the right renal pelvis. No hydroureter or stones demonstrated. Davidson Robert MD Narrative 05/03/2011 4:37 PM ASSISTANT TO THE VICE PRESIDENT EXAMINATION: Renal ultrasound COMPARISON: 05/14/2008 FINDINGS: Renal [...] PELVIS NON IV CONTRAST (03/21/2011 6:24 PM ASSISTANT TO THE VICE PRESIDENT) Anatomical Region Laterality Modality Abdomen, Pelvis Computed Tomogra phy 03/22/2011 8:49 AM ASSISTANT TO THE VICE PRESIDENT Impressions 03/22/2011 8:49 AM ASSISTANT TO THE VICE PRESIDENT 1. Mild left hydroureteronephrosis down to a 3 mm calculus at the left ureterovesical junction measuring 279 Hounsfield units. 2. Global cortical thinning right kidney. 3. High riding cecum located in the right upper quadrant with normal-appearing appendix. Narrative 03/22/2011 8:49 AM ASSISTANT TO THE VICE PRESIDENT Noncontrast CT scan of the abdomen and [...] (ABNORMAL) COMPREHENSIVE METABOLIC PANEL (03/21/2011 6:00 PM ASSISTANT TO THE VICE PRESIDENT) Sodium 146(H) 137 - 145 mmol/L [facility] Potassium 3.8 3.5 - 5.1 mmol/L [facility] Chloride 106 98 - 107 mmol/L [facility] CO2 26.6 18 - 27 mmol/L [facility] Glucose 84 70 - 106 mg/dl [facility] BUN 11.4 8 - 21 mg/dl [facility] Calcium 9.2 9.2 - 10.7 mg/dl [facility] Bilirubin Total 0.4(L) 0.6 - 1.4 mg/dl [facility] Protein Total 7.1 6.3 - 8.6 gm/dl [facility] Albumin 4.3 3.7 - 5.6 gm/dl [facility] ALT 13 5 - 30 Units/L [facility] AST 16 10 - 30 Units/L [facility] Alkaline Phosphatase 113 70 - 230 Units/L [facility] Creatinine 0.71 0.50 - 1.06 mg/dl [facility] BLOOD SPECIMEN / Unknown 03/21/2011 6:00 PM ASSISTANT TO THE VICE PRESIDENT 03/21/2011 6:07 PM ASSISTANT TO THE VICE PRESIDENT Narrative [facility] - 03/21/2011 6:24 PM ASSISTANT TO THE VICE PRESIDENT AUTO REORDER DUE TO SPECIMEN REJECT Jolly Vizcaino MD LAB [facility] Organization Address City/State/[facility] Co de Phone Number [facility] [address] [place] [address] * (ABNORMAL) DIFFERENTIAL MANUAL (03/21/2011 5:40 PM ASSISTANT TO THE VICE PRESIDENT) Comment Manual Diff Done [facility] Neutrophils % Manual 70(H) 24 - 66 % [facility] Lymphocytes % Manual 21(L) 22 - 61 % [facility] Monocytes % Manual 7 3 - 15 % [facility] Eosinophils % Manual 1 0 - 10 % [facility] Promyelocytes % Manual 1 % [facility] RBC Morphology Normal [facility] BLOOD SPECIMEN / Unknown 03/21/2011 5:40 PM ASSISTANT TO THE VICE PRESIDENT 03/21/2011 6:14 PM ASSISTANT TO THE VICE PRESIDENT Jolly Vizcaino MD LAB - HEMATOLOGY ORD ERABLES Performing Organization Address [facility] Co de Phone Number [facility] [address] [place] [address] * CBC W AUTO DIFFERENTIAL (03/21/2011 5:40 PM ASSISTANT TO THE VICE PRESIDENT) WBC 14.10 4.5 - 14.5 K/cumm [facility] RBC 4.43 4.10 - 5.10 mill/cumm [facility] Hemoglobin 12.4 12.0 - 16.0 gm/dl [facility] Hematocrit 38.1 36.0 - 47.0 % [facility] MCV 86.0 78.0 - 102.0 cu microns [facility] MCH 28.0 25.0 - 35.0 uug [facility] MCHC 32.5 31.0 - 37.0 % [facility] RDW 13.7 % [facility] MPV 10.2 fl [facility] Platelet Count 378 100 - 400 K/cumm [facility] Comment Manual Diff Done [facility] Blood specimen (specimen) BLOOD SPECIMEN / Unknown 03/21/2011 5:40 PM ASSISTANT TO THE VICE PRESIDENT 03/21/2011 5:43 PM ASSISTANT TO THE VICE PRESIDENT Jolly Vizcaino MD LAB - HEMATOLOGY ORD ERABLES Performing Organization Address [facility] Co de Phone Number [facility] [address] [place] [address] * HCG URINE QUALITATIVE (03/21/2011 5:20 PM ASSISTANT TO THE VICE PRESIDENT) HCG Qual Urine Negative Negative [facility] Urine specimen (specimen) URINE / Unknown 03/21/2011 5:20 PM ASSISTANT TO THE VICE PRESIDENT 03/21/2011 5:27 PM ASSISTANT TO THE VICE PRESIDENT Jolly Vizcaino MD LAB - URINALYSIS ORD ERABLES Performing Organization Address City/[facility] Co de Phone Number [facility] [address] [place] [address] * URINALYSIS ROUTINE AUTO (03/21/2011 5:17 PM ASSISTANT TO THE VICE PRESIDENT) Color UA YELLOW [facility] Character UA CLEAR [facility] Specific Jewett UA 1.020 1.003 - 1.030 [facility] pH UA 6.5 5.0 - 8.0 [facility] Protein UA NEGATIVE Negative [facility] Glucose UA NEGATIVE Negative gm/dl [facility] Ketone UA NEGATIVE Negative [facility] Blood UA TRACE-INTAC T Negative [facility] Bilirubin UA NEGATIVE Negative [facility] WBC UA 0-2 /HPF [facility] RBC UA 2-5 /HPF [facility] Epithelial Cell UA 3-5 /HPF [facility] Mucus UA rare [facility] Bacteria UA occ [facility] Leukocyte UA NEGATIVE [facility] Nitrite UA NEGATIVE [facility] Urobilinogen UA 0.2 <=1.0 EU/dl [facility] URINE SPECIMEN OBTAINED BY CLEAN CATCH PROCEDURE / Unknown 03/21/2011 5:17 PM ASSISTANT TO THE VICE PRESIDENT 03/21/2011 5:27 PM ASSISTANT TO THE VICE PRESIDENT Jolly Vizcaino MD LAB - URINALYSIS ORD ERABLES Performing Organization Address City/[facility]/ZIP Co de Phone Number [facility] [address] [place] [address] * CULTURE URINE (03/21/2011 5:17 PM ASSISTANT TO THE VICE PRESIDENT) Result [facility] Comment: Final CULTURE <10,000 CFU/mL urogenital/skin smitha Urine specimen (specimen) URINE SPECIMEN OBTAINED BY CLEAN CATCH PROCEDURE / Unknown 03/21/2011 5:17 PM ASSISTANT TO THE VICE PRESIDENT 03/21/2011 5:27 PM ASSISTANT TO THE VICE PRESIDENT Narrative Resulting Agency Comment Performed By [facility];[address] [place] [address];[place] [address] Jolly Vizcaino MD LAB - MICROBIOLOGY O RDERABLES [facility] [address] [place] [address] Care Teams Networking Technology Instructor Relationship Specialty Start Date End Date Brenda Mcdonough MD [address] [place] [id number] PCP - General 03/21/11
== END 2024-05-25 09:54 | disposition home or self-care (01) ==
PROVIDERS: PCP Nurse Practitioner Family; Visit Provider Nurse Practitioner Family
DX: M79.661 Pain in right lower leg (principal)
CPT/HCPCS: 93971

== ENCOUNTER 2024-10-22 21:21 | Emergency (ER) | payer OTHER, SELFPAY ==
--- NOTE | ~2024-10-22 | XR_ITS ---
EXAM: XR ankle LT min 3V, XR foot LT min 3V DATE: 10/22/2024 22:17 HISTORY: fall on stairs, pain . COMPARISON: None available. FINDINGS: Normal mineralization. Small acute ossific fragment at the anterior corner of the superior aspect of the navicular, seen in the lateral views. Punctate ossific fragment anterior to the anteri or tibia. No lytic or blastic lesion. Joint spaces are maintained. Plantar enthesopathy. No erosion o r periosteal change. Small ankle joint effusion. Anterior ankle and dorsal soft tissue swelling. IMPRESSION: Small avulsion fracture over the anterior and dorsal corner of the navicular bone, may represent a ca psular avulsion. Punctate ossific fragment anterior to the distal tibia, may represent a chronic degenerative or chron ic fragment or acute anterior ankle capsular avulsion. Reviewed, dictated and finalized at location K. IMPRESSION: Small avulsion fracture over the anterior and dorsal corner of the navicular abhilash ne, may represent a capsular avulsion. Punctate ossific fragment anterior to the distal tibia, may represent a chronic degenerative or chronic fragment or acute anterior ankle capsular avulsion.
--- OUTSIDE RECORDS SUMMARY | 2024-10-22 21:24 | XMS_ITS | Clinical Summary ---
Author Organization [facility] Address [address] [place] [address] Care Team Providers Care Pipe Inspector Name Role Phone Brenda Mcdonough MD Primary Care Provider Source Comments [facility],non-owned Affiliates and Associated Physician Practices is amultiple site organization consisting of ambulatory clinics and hospital sitesin [place], [place], [place] and [place]. This disclosure is being madepursuant to the Care Everywhere program and may not contain all information available regarding this patient. Last updated 17.[facility] Allergies No known active allergies Medications * Be aware that medications may not be up to date on this document. Alwaysverify current medications with the patient. lansoprazole (PREVACID) 15 MG capsule Take 15 mg by mouth daily before breakfast. Active Social History Tobacco Use Types Packs/Day Years Used Date Smoking Tobacco: Never Assessed Comments No Sex and Gender Information Value Date Recorded Sex Assigned at Not on file Legal Sex Female 5:37 AM EXPORT FREIGHT CLERK Gender Identity Not on file Sexual Orientation Not on file Last Filed Vital Signs Vital Sign Reading Time Taken Comments Blood Pressure 141/80 05/15/2012 10:39 PM EXPORT FREIGHT CLERK Pulse 84 05/15/2012 10:39 PM EXPORT FREIGHT CLERK Temperature 37.1 C (98.8 F) 05/15/2012 10:39 PM EXPORT FREIGHT CLERK Respiratory Rate 16 05/15/2012 10:3 9 PM EXPORT FREIGHT CLERK Oxygen Saturation 99% 05/15/2012 10: 39 PM EXPORT FREIGHT CLERK Inhaled Oxygen Concentration - - Weight 103.2 kg (227 lb 8.2 oz) 013 10:39 PM EXPORT FREIGHT CLERK Height 169.2 cm (5' 6.63) 05/03/2011 2:00 PM CS T Body Mass Index - - Plan of Treatment Health Maintenance Due Date Last Done Comments HIV SCREENING 09/11/2010 HEPATITIS C SCREENING 09/07/2013 DTAP/TDAP/TD VACCINES (1 - Tdap) 09/11/2014 HEPATITIS B VACCINE (1 of 3 - 19+ 3-dose series) 09/11/2014 HPV VACCINE (1 - 3-dose SCDM series) 09/11/2022 COVID-19 VACCINE (1 - 2023-2 5 season) 2023 DEPRESSION SCREENING 04/04/2024 INFLUENZA VACCINE (#1) 2024 ZOSTER VACCINE (1 of 2) 09/11/2045 HIB VACCINE Aged Out No longer eligi ble based on patient's age to complete this topic MENINGOCOCCAL (Group B) VACC INE SHARED DECISION-MAKING Aged Out No longer eligibl e based on patient's age to complete this topic MENINGOCOCCAL GROUPS A/C/Y/W VACCINE Aged Out No longer eligible b ased on patient's age to complete this topic PNEUMOCOCCAL VACCINE Aged Out No long er eligible based on patient's age to complete this topic Insurance [place]/[facility] Care Teams Pipe Inspector Relationship Specialty Start Date End Date Brenda Mcdonough MD [address] [facility] [address] [place] [address] PCP - General 03/21/11
--- OUTSIDE RECORDS SUMMARY | 2024-10-22 21:24 | XMS_ITS | Data Portability ---
Author Organization [facility] [employer], Main Office Address [address] [place] [address] Assessment No assessment recorded. Plan of Treatment Reminders Order Date Submit Date Provider Last Modified By Organization Details Last Modified Time Details Appointments None recorded. Lab TSH, serum, reflex free T4 [address] (Lab), [address] [place] [address], [address], 3 08:38:35 lipid panel, serum 2022 023 [facility] (Lab), [address] [place] [address], [address], 3 06:37:32 CBC w/ auto diff 2022 023 [facility] (Lab), [address] [place] [address], [address], 3 06:37:33 Referral None recorded. Procedures None recorded. Surgeries None recorded. Imaging None recorded. Medication Orders trazodone 50 mg tablet 2022 023 [facility][id number], [address], [place], [id number], 3 09:43:28 cyanocobala min (vit B-12) 1,000 mcg/mL injection solution 2022 023 [id number], [address], [place], [id number], 3 11:20:20 Vitamin D3 50 mcg (2,000 unit) capsule 2022 023 [facility][id number], [address], [place], [place], [id number], 3 11:20:19 Synthroid 100 mcg tablet 2022 023 [facility], [address] , [address], [place], [address], 3 11:20:18 Patient TargetsNo targets recorded. Patient Instructions Encounter Date Encounter Id Patient Instructions Last Modified By Organization Details Last Modified Time 03/02/2023 [id number] FU in 3-4 mo wit h alternate [...] Third trime ster 0.43- 2.91 Not Available [facility] [address] [address] [place], [address], 01/23/2022 07:09:56 01/22/2001/23/2022 TSH+F REE T4 T4, free 1.4 NG/dL 0.8-1. 8 normal Not Available [facility] [address] [place], [address], 01/23/2022 07:09:56 01/22/2001/23/2022 T3, FREE T3, free 2.7 pg/mL 2.3-4. 2 normal Not Available [facility] [address] [place], [address], 01/23/2022 07:09:56 01/22/20 22 01/23/2022 VITAM IN B12/F OLATE , SERUM PANEL vitamin B12 1632 pg/mL 200-11 00 high Not Available [address], [address], 01/23/2022 07:09:55 01/22/2001/23/2022 VITAM IN B12/F OLATE , SERUM PANEL folate, serum 11.3 NG/mL normal Refer ence Range Low: <3.4 Borde rline : 3.4-5 .4 Saira l: >5.4 Not Available [address], [address], 01/23/2022 07:09:55 01/22/20 22 01/23/2022 THYRO ID PEROX IDASE ANTIB ODIES thyroid peroxidase antibodies 342 IU/mL <9 high Not Available [address], [address], 01/23/2022 07:09:55 01/22/2001/23/2022 CALCI UM, 24 HOUR URINE (W/ CREAT ININE ) calcium/crea tinine ratio 113 mg/g_ creat 30-275 normal Not Available [address], [address], 01/23/2022 07:09:54 01/22/20 22 01/23/2022 CALCI UM, 24 HOUR URINE (W/ CREAT ININE ) calcium, 24 hour urine 127 mg/24 _h normal Refer ence Range 35-25 0 Low calci um diet 35-20 0 Not Available [address], [address], 01/23/2022 07:09:54 01/22/20 22 01/23/2022 CALCI UM, 24 HOUR URINE (W/ CREAT ININE ) creatinine, 24 hour urine 1.13 g/24_ h 0.50-2 .15 normal Not Available [address] [address] [place], [address], 01/23/2022 07:09:54 01/22/2001/23/2022 COMPR EHENS ANAHY METAB OLIC PANEL glucose 92 mg/dL 65-139 normal Non-f astin g refer ence inter reyna Not Available [address] [address] [place], [address], 01/23/2022 07:09:54 01/22/2001/23/2022 COMPR EHENS ANAHY METAB OLIC PANEL urea nitrogen (BUN) 10 mg/dL 7-25 normal Not Available [address], [address], 01/23/2022 07:09:54 01/22/2001/23/2022 COMPR EHENS ANAHY METAB OLIC PANEL creatinine 0.83 mg/dL 0.50-0 .96 normal Not Available [address], [address], 01/23/2022 07:09:54 01/22/2001/23/2022 COMPR EHENS ANAHY METAB OLIC PANEL eGFR 100 mL/mi n/1.7 3m2 > or = 60 normal The eGFR is based on the CKD-E PI 2020 equat ion. To calcu late the new eGFR from a previ ous Creat inine or Cysta tin C resul t, go to https ://carl w.marychuy bae.o bernie/sarah beth mora s/ kdoqi /gfr% 5Fcal culat or Not Available [address] [address] [place], [address], 01/23/2022 07:09:54 01/22/20 22 01/23/2022 COMPR EHENS ANAHY METAB OLIC PANEL BUN/creatini ne ratio not applic able (calc ) 6-22 Not Available [address], [address], 01/23/2022 07:09:54 01/22/20 22 01/23/2022 COMPR EHENS ANAHY METAB OLIC PANEL sodium 140 mmol/ L 135-14 6 normal Not Available [address], [address], 01/23/2022 07:09:54 01/22/2001/23/2022 COMPR EHENS ANAHY METAB OLIC PANEL potassium 4.4 mmol/ L 3.5-5. 3 normal Not Available [address], [address], 01/23/2022 07:09:54 01/22/2001/23/2022 COMPR EHENS ANAHY METAB OLIC PANEL chloride 104 mmol/ L 98-110 normal Not Available [address], [address], 01/23/2022 07:09:54 01/22/2001/23/2022 COMPR EHENS ANAHY METAB OLIC PANEL carbon dioxide 24 mmol/ L 20-32 normal Not Available [address], [address], 01/23/2022 07:09:54 01/22/20 22 01/23/2022 COMPR EHENS ANAHY METAB OLIC PANEL calcium 9.8 mg/dL 8.6-10 .2 normal Not Available [address], [address], 01/23/2022 07:09:54 01/22/20 22 01/23/2022 COMPR EHENS ANAHY METAB OLIC PANEL protein, total 7.5 g/dL 6.1-8. 1 normal Not Available [address], [address], 01/23/2022 07:09:54 01/22/20 22 01/23/2022 COMPR EHENS ANAHY METAB OLIC PANEL albumin 4.7 g/dL 3.6-5. 1 normal Not Available [address] [address] [place], [address], 01/23/2022 07:09:54 01/22/2001/23/2022 COMPR EHENS ANAHY METAB OLIC PANEL globulin 2.8 g/dL_ (calc ) 1.9-3. 7 normal Not Available [address] [address] [place], [address], 01/23/2022 07:09:54 01/22/2001/23/2022 COMPR EHENS ANAHY METAB OLIC PANEL albumin/glob ulin ratio 1.7 (calc ) 1.0-2. 5 normal Not Available [address] [address] [place], [address], 01/23/2022 07:09:54 01/22/2001/23/2022 COMPR EHENS ANAHY METAB OLIC PANEL bilirubin, total 0.4 mg/dL 0.2-1. 2 normal Not Available [address] [address] [place], [address], 01/23/2022 07:09:54 01/22/2001/23/2022 COMPR EHENS ANAHY METAB OLIC PANEL alkaline phosphatase 102 U/L 31-125 normal Not Available [address] [address] [place], [address], 01/23/2022 07:09:54 01/22/2001/23/2022 COMPR EHENS NAAHY METAB OLIC PANEL AST 15 U/L 10-30 normal Not Available [address] [address] [place], [address], 01/23/2022 07:09:54 01/22/2001/23/2022 COMPR EHENS ANAHY METAB OLIC PANEL ALT 10 U/L 6-29 normal Not Available [address] [address] [place], [address], 01/23/2022 07:09:54 12/10/19 23 12/13/2022 COMPR EHENS ANAHY METAB OLIC PANEL glucose 84 mg/dL 65-99 normal Fasti ng refer ence inter reyna Not Available [address], [address], 12/13/2022 13:38:35 12/10/19 23 12/13/2022 COMPR EHENS ANAHY METAB OLIC PANEL urea nitrogen (BUN) 10 mg/dL 7-25 normal Not Available [address], [address], 12/13/2022 13:38:35 12/10/1912/13/2022 COMPR EHENS ANAHY METAB OLIC PANEL creatinine 0.78 mg/dL 0.50-0 .96 normal Not Available [address], [address], 12/13/2022 13:38:35 12/10/19 23 12/13/2022 COMPR EHENS ANAHY METAB OLIC PANEL eGFR 107 mL/mi n/1.7 3m2 > or = 60 normal Not Available [address], [address], 12/13/2022 13:38:35 12/10/19 23 12/13/2022 COMPR EHENS ANAHY METAB OLIC PANEL BUN/creatini ne ratio SEE NOTE: (calc ) 6-22 Not Repor lucina: BUN and Creat inine are withi n refer ence range . Not Available [address], [address], 12/13/2022 13:38:35 12/10/1912/13/2022 COMPR EHENS ANAHY METAB OLIC PANEL sodium 142 mmol/ L 135-14 6 normal Not Available [address], [address], 12/13/2022 13:38:35 12/10/19 23 12/13/2022 COMPR EHENS ANAHY METAB OLIC PANEL potassium 4.1 mmol/ L 3.5-5. 3 normal Not Available [address], [address], 12/13/2022 13:38:35 12/10/19 23 12/13/2022 COMPR EHENS ANAHY METAB OLIC PANEL chloride 107 mmol/ L 98-110 normal Not Available [address], [address], 12/13/2022 13:38:35 12/10/19 23 12/13/2022 COMPR EHENS ANAHY METAB OLIC PANEL carbon dioxide 25 mmol/ L 20-32 normal Not Available [address], [address], 12/13/2022 13:38:35 12/10/19 23 12/13/2022 COMPR EHENS ANAHY METAB OLIC PANEL calcium 9.1 mg/dL 8.6-10 .2 normal Not Available [address], [address], 12/13/2022 13:38:35 12/10/19 23 12/13/2022 COMPR EHENS ANAHY METAB OLIC PANEL protein, total 6.3 g/dL 6.1-8. 1 normal Not Available [address], [address], 12/13/2022 13:38:35 12/10/19 23 12/13/2022 COMPR EHENS ANAHY METAB OLIC PANEL albumin 4.0 g/dL 3.6-5. 1 normal Not Available [address], [address], 12/13/2022 13:38:35 12/10/19 23 12/13/2022 COMPR EHENS ANAHY METAB OLIC PANEL globulin 2.3 g/dL_ (calc ) 1.9-3. 7 normal Not Available [address], [address], 12/13/2022 13:38:35 12/10/19 23 12/13/2022 COMPR EHENS ANAHY METAB OLIC PANEL albumin/glob ulin ratio 1.7 (calc ) 1.0-2. 5 normal Not Available [address], [address], 12/13/2022 13:38:35 12/10/19 23 12/13/2022 COMPR EHENS ANAHY METAB OLIC PANEL bilirubin, total 0.3 mg/dL 0.2-1. 2 normal Not Available [address], [address], 12/13/2022 13:38:35 12/10/19 23 12/13/2022 COMPR EHENS ANAHY METAB OLIC PANEL alkaline phosphatase 85 U/L 31-125 normal Not Available [address], [address], 12/13/2022 13:38:35 12/10/19 23 12/13/2022 COMPR EHENS ANAHY METAB OLIC PANEL AST 11 U/L 10-30 normal Not Available [address], [address], 12/13/2022 13:38:35 12/10/19 23 12/13/2022 COMPR EHENS ANAHY METAB OLIC PANEL ALT 6 U/L 6-29 normal Not Available [address], [address], 12/13/2022 13:38:35 12/10/1912/13/2022 THYRO ID PEROX IDASE ANTIB ODIES thyroid peroxidase antibodies 333 IU/mL <9 high Not Available [address], [address], 12/13/2022 13:38:36 12/10/19 23 12/13/2022 VITAM IN B12/F OLATE , SERUM PANEL vitamin B12 524 pg/mL 200-11 00 normal Not Available [facility] [address] [place], [address], 12/13/2022 13:38:36 12/10/1912/13/2022 VITAM IN B12/F OLATE , SERUM PANEL folate, serum 11.6 NG/mL normal Refer ence Range Low: <3.4 Borde rline : 3.4-5 .4 Saira l: >5.[address] [facility] [address] [place], [address], 12/13/2022 13:38:36 12/10/1912/13/2022 T3, FREE T3, free 3.0 pg/mL 2.3-4. 2 normal Not Available [facility] [address] [address] [place], [address], 12/13/2022 13:38:37 12/10/1912/13/2022 VITAM IN D,25- [place],TO [...] /MS is recom shawn d: order code 58601 (naa ents >2yrs ). See Note 1 Note 1 For addit ional infor ashai hess refer to http: //isac Flores stDia gnost ics.c om/fa q/FAQ 199 (This link is being provi ded for infor aakash dinero/ educa suleman l purpo ses only. ) Not Available [address] [address] [place], [address], 12/13/2022 13:38:38 12/10/1912/13/2022 TSH+F REE T4 TSH 1.44 mIU/L normal Refer ence Range > or = 20 Years 0.40- 4.50 Pregn garcia Range s First trime ster 0.26- 2.66 Secon d trime ster 0.55- 2.73 Third trime ster 0.43- 2.91 Not Available [address], [address], 12/13/2022 13:38:39 12/10/1912/13/2022 TSH+F REE T4 T4, free 1.2 NG/dL 0.8-1. 8 normal Not Available [address], [address], 12/13/2022 13:38:39 03/03/20 23 03/04/2023 LIPID PANEL , STAND CRYS cholesterol, total 211 mg/dL <200 high Not Available [address], [address], 03/04/2023 06:37:32 03/03/20 23 03/04/2023 LIPID PANEL , STAND CRYS HDL cholesterol 68 mg/dL > or = 50 normal Not Available [address], [address], 03/04/2023 06:37:32 03/03/20 23 03/04/2023 LIPID PANEL , STAND CRYS triglyceride s 89 mg/dL <150 normal Not Available [address], [address], 03/04/2023 06:37:32 03/03/20 23 03/04/2023 LIPID PANEL [...] lated using the Danya n-Hop kins calcu fideannelise n, which is a valid ated novel metho d provi ding sully r accur acy than the Fried james equat ion in the estim ation of LDL-C . Danya hernandez SS et al. MERLINE. 2013; 310(1 9): 2061- 206 (http ://ed ucati on.Qu estSpeed Dating by Chantilly Lace. com/f aq/FA Q164) Not Available [facility] [address] [address] [place], [address], 03/04/2023 06:37:32 03/03/20 23 03/04/2023 LIPID PANEL , STAND CRYS chol/HDLC ratio 3.1 (calc ) <5.0 normal Not Available [facility] [address] [address] [address] , [place], [address], 03/04/2023 06:37:32 03/03/20 23 03/04/2023 LIPID PANEL , STAND CRYS non HDL cholesterol 143 mg/dL _(mildred c) <130 high For patie nts with diabe jamin plus 1 major ASCVD risk facto r, treat ing to a non-H DL-C goal of <100 mg/dL (LDL- C of <70 mg/dL ) is consi eric gerard optio n. Not Available [facility] [address] [address] [place], [address], 03/04/2023 06:37:32 03/03/20 23 03/04/2023 CBC (INCL UDES DIFF/ PLT) white blood cell count 6.8 thous and/u L 3.8-10 .8 normal Not Available [facility] [address] [address] [place], [address], 03/04/2023 06:37:33 03/03/20 23 03/04/2023 CBC (INCL UDES DIFF/ PLT) red blood cell count 4.62 gena on/uL 3.80-5 .10 normal Not Available [address], [address], 03/04/2023 06:37:33 03/03/20 23 03/04/2023 CBC (INCL UDES DIFF/ PLT) hemoglobin 11.2 g/dL 11.7-1 5.5 low Not Available [facility] [address], [address], 03/04/2023 06:37:33 03/03/20 23 03/04/2023 CBC (INCL UDES DIFF/ PLT) hematocrit 35.8 % 35.0-4 5.0 normal Not Available [address], [address], 03/04/2023 06:37:33 03/03/20 23 03/04/2023 CBC (INCL UDES DIFF/ PLT) MCV 77.5 fL 80.0-1 00.0 low Not Available [address], [address], 03/04/2023 06:37:33 03/03/20 23 03/04/2023 CBC (INCL UDES DIFF/ PLT) MCH 24.2 pg 27.0-3 3.0 low Not Available [address], [address], 03/04/2023 06:37:33 03/03/20 23 03/04/2023 CBC (INCL UDES DIFF/ PLT) MCHC 31.3 g/dL 32.0-3 6.0 low Not Available [facility] [address], [address], 03/04/2023 06:37:33 03/03/20 23 03/04/2023 CBC (INCL UDES DIFF/ PLT) RDW 14.5 % 11.0-1 5.0 normal Not Available [address], [address], 03/04/2023 06:37:33 03/03/2003/04/2023 CBC (INCL UDES DIFF/ PLT) platelet count 343 thous and/u L 140-40 0 normal Not Available [address], [address], 03/04/2023 06:37:33 03/03/20 23 03/04/2023 CBC (INCL UDES DIFF/ PLT) MPV 10.3 fL 7.5-12 .5 normal Not Available [address], [address], 03/04/2023 06:37:33 03/03/20 23 03/04/2023 CBC (INCL UDES DIFF/ PLT) absolute neutrophils 4352 cells /uL 1500-7 800 normal Not Available [address], [address], 03/04/2023 06:37:33 03/03/2003/04/2023 CBC (INCL UDES DIFF/ PLT) absolute lymphocytes 1870 cells /uL 850-39 00 normal Not Available [address], [address], 03/04/2023 06:37:33 03/03/20 23 03/04/2023 CBC (INCL UDES DIFF/ PLT) absolute monocytes 449 cells /uL 200-95 0 normal Not Available [address], [address], 03/04/2023 06:37:33 03/03/20 23 03/04/2023 CBC (INCL UDES DIFF/ PLT) absolute eosinophils 68 cells /uL 15-500 normal Not Available [address], [address], 03/04/2023 06:37:33 03/03/20 23 03/04/2023 CBC (INCL UDES DIFF/ PLT) absolute basophils 61 cells /uL 0-200 normal Not Available [address], [address], 03/04/2023 06:37:33 03/03/20 23 03/04/2023 CBC (INCL UDES DIFF/ PLT) neutrophils 64 % normal Not Available [address], [address], 03/04/2023 06:37:33 03/03/20 23 03/04/2023 CBC (INCL UDES DIFF/ PLT) lymphocytes 27.5 % normal Not Available [address], [address], 03/04/2023 06:37:33 03/03/20 23 03/04/2023 CBC (INCL UDES DIFF/ PLT) monocytes 6.6 % normal Not Available [address], [address], 03/04/2023 06:37:33 03/03/20 23 03/04/2023 CBC (INCL UDES DIFF/ PLT) eosinophils 1.0 % normal Not Available [address], [address], 03/04/2023 06:37:33 03/03/20 23 03/04/2023 CBC (INCL UDES DIFF/ PLT) basophils 0.9 % normal Not Available [address], [address], 03/04/2023 06:37:33 03/03/20 23 03/04/2023 TSH W/REF MORRIS TO FT4 TSH w/reflex to FT4 10.40 mIU/L high Refer ence Range > or = 20 Years 0.40- 4.50 Pregn garcia Range s First trime ster 0.26- 2.66 Secon d trime ster 0.55- 2.73 Third trime ster 0.43- 2.91 Not Available [facility] [id number] , [place], [address], 03/04/2023 06:37:35 03/03/2003/04/2023 T4, FREE T4, free 0.9 NG/dL 0.8-1. 8 normal Not Available [facility] [address] [place], [address], 03/04/2023 06:37:35 Result Notes None recorded. Problems Name Problem SNOMED Code Status Onset Date Resolution Date Notes Provider Name and Address Organization Details Recorded Time Epigastric pain 70741887 Active 2019 Not Available [facility] 3 13:30:49 Insomnia 741087075 Active 2020 Not Available [facility] 3 13:30:48 Anxiety 07146025 Active 2020 Not Available [facility] 3 13:30:48 Thyroid stimulating hormone level above reference range 235060520 Active 2020 Not Available [facility] 3 13:30:48 Ryne thyroiditis 59248295 Active 2020 Not Available [facility] 3 13:30:48 Hypothyroidis m 42362306 Active 2021 Not Available [facility] 3 13:30:48 Vitamin B12 deficiency (non anemic) 20303883 Active 2021 Not Available [facility] 3 13:30:48 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 Procedures Surgical History Date Name Laterality Status Provider Name and Address Organization Details Recorded Time Cholecystectomy completed Not Available [facility] 06/02/2022 13:30:04 Imaging Results None recorded. [...] with needle 1 mL 31 gauge x 08/17 USE TO INJECT B12 SUBCUTAN EOUS ONCE [...] Respiratory rate Body temperature Body weight Systolic And Diastolic Provider Name and Address Organization Details Last Updated DateTime 3 34.9 kg/m2 172.72 cm 98 % 98 % 97 /min 14 /min 98.5 [degF] 617178. 17 g 124/84 mm[Hg] Not Available [facility] 3 13:30:27 Date Recorded Body height Body mass index (BMI) Body weight Heart rate Body temperature Systolic And Diastolic Provider Name and Address Organization Details Last Updated DateTime 3 172.72 cm 35.5 kg/m2 539686. 46 g 103 /min 98.7 [degF] 121/85 mm[Hg] TORRES Stallings - [facility] [employer] [facility] 3 10:58:09 Date Recorded Body mass index (BMI) Body height Oxygen saturation Oxygen saturation in Arterial blood by Pulse oximetry Heart rate Body temperature Body weight Systolic And Diastolic Provider Name and Address Organization Details Last Updated DateTime 2 33.9 kg/m2 172.72 cm 99 % 99 % 108 /min 97.7 [degF] 797261. 1 g 120/80 mm[Hg] Not Available [facility] 3 13:30:27 Date Recorded Body height Body mass index (BMI) Body weight Body temperature Heart rate Respiratory rate Oxygen saturation Oxygen saturation in Arterial blood by Pulse oximetry Systolic And Diastolic Provider Name and Address Organization Details Last Updated DateTime 3 172.72 cm 35.8 kg/m2 588264. 01 g 96.2 [degF] 75 /min 16 /min 99 % 99 % 120/82 mm[Hg] Tara Gayle RN [place] - [facility] 3 09:02:43 Date Recorded Body mass index (BMI) Body height Oxygen saturation Oxygen saturation in Arterial blood by Pulse oximetry Heart rate Respiratory rate Body temperature Body weight Systolic And Diastolic Provider Name and Address Organization Details Last Updated DateTime 2 34 kg/m2 172.72 cm 98 % 98 % 110 /min 18 /min 98.3 [degF] 281021. 2 g 118/78 mm[Hg] Not Available [facility] 3 13:30:27 Social History Question Answer Notes LastModified by Organizat ion Details LastModified Time Tobacco Smoking Status Never Smoker Not Available [facility] 06/02/2022 13:29:58 Do You Have An Advance Directive? No [id number] Information not available 06/02/2022 Is Blood Transfusion Acceptable In An Emergency? Yes Information not available 03/02/2023 What Is Your Level Of Caffeine Consumption? Moderate MIGRATION.32836 [id number] Information not available 06/02/2022 How Much Tobacco Do You Chew? None MIGRATION.86632 [id number] Information not available 06/02/2022 What Is Your Code Status? Full Code Information not available 03/02/2023 In The 14 Days Before Symptom Onset, Have You Had Close Contact With A Laboratory-confir med COVID-19 While That Case Was Ill? No MIGRATION.06279 [id number] Information not available 06/02/2022 In The 14 Days Before Symptom Onset, Have You Had Close Contact With A Person Who Is Under Investigation For COVID-19 While That Person Was Ill? No MIGRATION.[id number] Information not available 06/02/2022 What Type Of Diet Are You Following? REGULAR MIGRATION.03346 51032 Information not available 06/02/2022 Which Illicit Or Recreational Drugs Have You Used? None MIGRATION.95741 71025 Information not available 06/02/2022 What Is The Highest Grade Or Level Of School You Have Completed Or The Highest Degree You Have Received? [id number] MIGRATION.38026 29570 Information not available 06/02/2022 Have There Been Any Changes To Your Family Or Social Situation? No MIGRATION.97679 54841 Information not available 06/02/2022 What Is The Fluoride Status Of Your Home? Unknown MIGRATION.54596 06574 Information not available 06/02/2022 Are There Any Guns Present In Your Home? No MIGRATION.43306 98003 Information not available 06/02/2022 Do You Use Insect Repellent Routinely? Yes MIGRATION.17620 43027 Information not available 06/02/2022 Where Do You Live? [place] MIGRATION.08739 92221 Information not available 06/02/2022 Do You Have A Medical Power Of Quality Control Supervisor? No MIGRATION.78574 44470 Information not available 06/02/2022 Do You Have Any Pets? Yes MIGRATION.90222 29013 Information not available 06/02/2022 What Is Your Relationship Status? Single MIGRATION.45226 25077 Information not available 06/02/2022 Do You Use Your Seat Belt Or Car Seat Routinely? Yes MIGRATION.43578 23142 Information not available 06/02/2022 Do You Have Smoke And Carbon Monoxide Detectors In Your Home? Yes MIGRATION.01683 25762 Information not available 06/02/2022 Are You Passively Exposed To Smoke? No MIGRATION.80474 16205 Information not available 06/02/2022 Are There Any Smokers In Your House? No MIGRATION.00695 23405 Information not available 06/02/2022 Do You Participate In Social Media? No MIGRATION.56035 78782 Information not available 06/02/2022 Do You Use Sunscreen Routinely? Yes MIGRATION.45794 35419 Information not available 06/02/2022 Have You Recently Traveled Abroad? No MIGRATION.62848 15967 Information not available 06/02/2022 Are You Currently In School? No MIGRATION.15259 91137 Information not available 06/02/2022 Do You Have Any Dietary Restrictions? No MIGRATION.70350 33452 Information not available 06/02/2022 Sex: Female Functional Status Question Answer Note LastModified by Organizat ion Details LastModified Time Do you use any illicit or recreational drugs? No MIGRATION.029315 9456 Information not available 06/02/2022 What is your level of alcohol consumption? Occasional MIGRATION.477403 6268 Information not available 06/02/2022 What is your occupation? [employer] MIGRATION.066102 4073 Information not available 06/02/2022 What is your exercise level? Occasional MIGRATION.392017 8872 Information not available 06/02/2022 Mental Status Question Answer Note LastModified by Organizat ion Details LastModified Time Do you feel stressed (tense, restless, nervous, or anxious, or unable to sleep at night)? [id number] Information not available 06/02/2022 Family History Relationship Description Onset Age of this Age Resolved Age Notes LastModified by Organization Details LastModified Time Mother Hypertensive disorder [id number] Not available 06/02/2022 13:30:06 Mother Diabetes mellitus [id number] Not available 06/02/2022 13:30:06 Mother Hypothyroidi sm MIGRATION.636 [id number] Not available 06/02/2022 13:30:06 Father Hypertensive disorder [id number] Not available 06/02/2022 13:30:06 Father Hypothyroidi sm [id number] Not available 06/02/2022 13:30:07 Medical History Condition Response BLINDNESS N RHEUMATIC FEVER N KIDNEY STONES N BLADDER PROBLEMS N MRSA N OTHER # 1 N POLIO N LUNG DISEASE/DISORDER N HISTORY OF DRUG ABUSE N RADIATION / CHEMOTHERAPY N COPD N Other # 2 N BLOOD DISEASES N SURGERY N EAR OR HEARING PROBLEMS N MUMPS N SHINGLES N FEMALE PROBLEMS / INFECTIONS N DEPRESSION (INCLUDING POST ) Y BOWEL PROBLEMS N STROKE/TIA N THYROID DISEASE N ULCERS N BENIGN PROSTATIC HYPERPLASIA N MEASLES N CERVICALGIA N TB SKIN TEST N HYPOTENSION N MYOCARDIAL INFARCTION N PARAPELGIA N OBESITY N GERD/NAUSEA N ANEURYSM N URINARY/BLADDER/KIDNEY PROBLEMS [...] GLAUCOMA N FOOT PROBLEM N DIVERTICULITIS N SLEEP APNEA N CHICKENPOX N ALLERGIES/HAYFEVER N INFECTIOUS DISEASE N PROSTATE N HEART ARRHYTHMIA N INSOMNIA N HIGH CHOLESTEROL / HYPERLIPIDEMIA N EYE PROBLEMS N HYPERTHYROIDISM Y EATING DISORDER N EDEMA N CHRONIC PAIN SYNDROME N CAROTID BLOCKAGE N CONSTIPATION N BACK / NECK PROBLEMS N HAVE YOU BEEN HOSPITALIZED OR SEEN IN [facility] ER IN THE PAST YEAR ? N ATHEROSCLEROSIS [...] DISORDER N ALZHEIMER'S DISEASE N PAIN N DEMENTIA N HERPES N SEIZURES/EPILEPSY N HEADACHES/MIGRAINES N VASCULAR DISEASE N PACEMAKER N DIZZINESS N HEART DISEASE/HEART PROBLEMS N KIDNEY DISEASE N SCARLET FEVER N MULTIPLE SCLEROSIS N DEVELOPMENTAL OR BEHAVIORAL DISORDERS N MENTAL DISORDER/ILLNESS N CANCER: SPECIFY N CARDIAC ARRHYTHMIA N PNEUMONIA N ATRIAL FIBRILLATION N Gall [...] unspecified formulation 3 completed Tara Short NP [address] [place] [address], [id number], [facility] [employer] 03/02/2023 09:36:25 SARS-COV-2 (COVID-19) vaccine, UNSPECIFIED 1 completed Not Available [facility] 06/02/2022 13:33:44 SARS-COV-2 (COVID-19) vaccine, UNSPECIFIED 1 completed Not Available [facility] 06/02/2022 13:33:44 SARS-COV-2 (COVID-19) vaccine, UNSPECIFIED 1 completed Not Available [facility] 06/02/2022 13:33:44 Influenza, split virus, quadrivalent, preservative 1 completed Not Available [facility] 06/02/2022 13:33:44 Influenza, split virus, quadrivalent, PF 9 completed Not Available [facility] 06/02/2022 13:33:44 Past Encounters Encounter ID Performer Location Encounter Start Date Encounter Closed Date Diagnosis/Indication Diagnosis SNOMED-CT Code Diagnosis ICD10 Code Diagnosis Note [id number] Saeed Hidalgo MD [address] [address] 09/16/2020 00:00:00 09/16/2020 17:14:56 [id number] Saeed Hidalgo MD [address] [address] 11/11/2020 00:00:00 11/11/2020 09:49:57 [id number] Saeed Hidalgo MD [address] [address] 03/06/2021 00:00:00 03/06/2021 09:38:20 [id number] Saeed Hidalgo MD [address] [address] 03/10/2021 00:00:00 03/17/2021 08:15:21 [id number] Reshma Llamas MD [facility] [place] [place] [address] [place] [address] 06/01/2021 00:00:00 06/01/2021 09:46:20 [id number] Saeed Hidalgo MD [address] [address] 07/22/2021 00:00:00 07/22/2021 18:37:24 [id number] Reshma Llamas MD [facility] [place] [address] [place] [address] 07/31/2021 00:00:00 07/31/2021 10:58:39 [id number] Saeed Hidalgo MD [facility] [place] [address] [place] [address] 08/25/2021 00:00:00 08/25/2021 12:43:30 [id number] S[facility] [place] [address] [place] [address] 02/16/2022 00:00:00 02/16/2022 10:17:55 [id number] Saeed Hidalgo MD [facility] [place] [address] [place] [address] 03/16/2022 00:00:00 03/16/2022 12:41:54 [id number] [facility] [address] [place] [address] 04/27/2022 00:00:00 04/27/2022 12:04:26 [id number] Reshma Llamas MD [facility] [place] [address] [place] [address] 12/23/2022 10:48:46 12/23/2022 11:26:27 Hypothyroidism 69440659 E03.9 TSH and FT4 in ideal range- [...] on. 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 Vitamin D deficiency 347 84696 E55.9 Vit D low normal- goal up to 50 ng/mL to optimize bone and immune health- recommend 5282-5708 IU daily. Spent up to 25 minutes [...] answered and refills necessary at visit today. [id number] Tara Short NP [facility] [address] [address] 03/02/2023 08:55:14 03/02/2023 09:46:53 Adult health examination 255315751 Z00.01 Encouraged well balanced meals, active lifestlye, and routine vision and dental appts. Anxiety 93191718 F41.9 Trazodone 50 mg po nightly.Se rtraline 50 mg po daily. States she is using 1/2 tab po prn. 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 Insomnia 906298393 G47.0 0 trazodone helps. Vitamin B1 2 deficiency (non anemic) 80846666 E53.8 Was getting script [address] Dr[address] Llamas, she is now gone. B12 1000 mcg in sq weekly. Vitamin D deficiency 347 65731 E55.9 12/09/22 was 32, normal. Hyperlipid emia screening 874549007 Z13.220 Anemia screening 3882196 07 Z13.0 Health Concerns Section Related Observation LastModified by Organization Detai ls LastModified Time None Recorded Concern Status LastModified by Organization Details LastModified Time None Recorded Advance Directives Directive N: Payers Insurance Date Sequence Insurance Name Policy Number Policy Alfaro Covered Member ID Alfaro Member ID Guarantor Name 04/03/2024 1 [facility] - DOS ON OR AFTER 2020 - DUAL ELIGIBLE (MEDICARE REPLACEMENT/AD VANTAGE - HMO) Kym Eloy [id number] Kym Eloy 04/22/2023 [facility] Kym Eloy R UMR Kymfernando Lyons 04/22/2023 2 [place] Kym Eloy [id number] Kymfernando Lyons 04/22/2023 1 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 COVID booster Feb 2023.Well woman- Hasn't had one in 3 years. Does not have gyne on new insurance. Looking at going to [facility] [place].Labs- Thryoid drawn in December.Vision - utd. Wears glasses daily. Last visit was over the summer.Dental- utd Tara Short NP [address] [facility] [facility] [address], [place], [address], [facility] [employer] 03/02/2023 09:44:59 OBGyn Episode No OBEpisode recorded.
[2024-10-22 21:33] VITALS: BP 134/85; PULSE 88; RESP 18; TEMP 36.4; O2SAT 100
--- OUTSIDE RECORDS SUMMARY | 2024-10-22 22:23 | XMS_ITS | Clinical Summary ---
Author Organization [facility] Address [address] [place] [address] Care Team Providers Care Home Health Billing Specialist Name Role Phone Brenda Mcdonough MD Primary Care Provider [phone] Source Comments [facility],non-owned Affiliates and Associated Physician Practices is amultiple site organization consisting of ambulatory clinics and hospital sitesin [place], [place], [place] and [place]. This disclosure is being madepursuant to the Care Everywhere program and may not contain all information available regarding this patient. 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 Pulse 84 05/15/2012 10:39 PM CHAIRLIFT OPERATOR Temperature 37.1 C (98.8 F) 05/15/2012 10:39 PM CHAIRLIFT OPERATOR Respiratory Rate 16 05/15/2012 10:3 9 PM CHAIRLIFT OPERATOR Oxygen Saturation 99% 05/15/2012 10: 39 PM CHAIRLIFT OPERATOR Inhaled Oxygen Concentration - - Weight 103.2 kg (227 lb 8.2 oz) 013 10:39 PM CHAIRLIFT OPERATOR Height 169.2 cm (5' 6.63) 05/03/2011 2:00 [...] patient's age to complete this topic Insurance BC/[facility] Care Teams Home Health Billing Specialist Relationship Specialty Start Date End Date Brenda Mcdonough MD [address] [facility] [address] [place] [address] PCP - General 03/21/11
--- NOTE | 2024-10-22 23:05 | ED.LOWEXIN ---
HPI - Extremity Injury (Lower) General Chief Complaint: Extremity Injury, Lower Stated Complaint: L. ankle pain after fall Time Seen by Provider: 10/22/24 21:44 History of Present Illness HPI Narrative: 29-year-old otherwise healthy female presenting to the emergency department after rolling her left ankle while tripping down some stairs. She fell down 2 stairs and her left ankle inverted. She was not able to put weight on afterwards and feels slightly numb but she does have good range of motion but did not try to ambulate. She brought in her own crutches from home. Patient denies any other traumatic injuries. No knee pain, hip pain, head trauma. She was otherwise fine prior to the accident. Did not take any for pain prior to arrival. Related Data Home Medications ?Medication ?Instructions ?Recorded ?Confirmed ?Last Taken ?Type omeprazole magnesium 20 mg 20 mg PO DAILY 01/07/20 08/02/24 02/10/20 History tablet,delayed release (Prilosec OTC) cetirizine 10 mg tablet (Zyrtec) 10 mg PO DAILY PRN 08/03/23 08/02/24 Unknown History cholecalciferol (vitamin D3) 50 100 mcg PO DAILY 08/03/23 08/02/24 Unknown History mcg (2,000 unit) capsule levonorgestrel (Mirena) 1 device intrauterine ONCE 05/29/24 08/02/24 Unknown History Allergies Allergy/AdvReac Type Severity Reaction Status Date / Time No Known Allergies Allergy Mild Verified 10/22/24 21:42 Review of Systems Review of Systems: As reviewed above in HPI [facility] Past Medical History Medical History Ryne's disease Anxiety Obesity Gallbladder polyp Epigastric abdominal pain BMI 33.0-33.9,adult History of kidney stones History of gastroesophageal reflux (GERD) Surgical History Surgical History [place] teeth extracted History of dental surgery Hx laparoscopic cholecystectomy 02/11/20 History of myringotomy H/O removal of cyst chin History of tonsillectomy Family History Family History Father Hypertension Mother Hypertension Diabetes mellitus Asthma Grandparent Diabetes mellitus Uterine cancer Skin cancer Hypertension Social History Social History Social History: 07/30/24 Patient declined SDOH Smoking status: Never smoker Alcohol intake: current Alcohol use details: rarely Substance use: never Substance use type: does not use Do You Feel Safe in your Home?: Yes Lack of Transportation: No Lack of Food: Never True Current Housing: I Have Housing Concerned About Future Housing: No Difficulty Paying Gas/Electric Bills: No Difficulty Paying for Meds: No Currently Unemployed: No Education: Bachelor's Degree Difficulty w/ Childcare or Family Care: No Living arrangements: with family Occupation/Education: occupation 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 Mucous membranes moist. NECK: Supple. CHEST: [Clear to auscultation. No respiratory distress.] HEART: [Regular rate and rhythm]. No murmur heard. [Normal peripheral pulses.] ABDOMEN: [Soft, nondistended], [nontender], [No rigidity or guarding] EXTREMITIES: There is bruising and swelling over the lateral malleolus and left lower extremity. Swelling goes towards the midfoot. Able to wiggle the toes and plantar and dorsiflexion with good range of the ankle. Dorsiflex elicits pain while plantar flexion elicits no pain. Putting pressure on the heel elicits pain in the ankle. No medial malleolar bone tenderness or deformity. No proximal step-offs deformities to the lower extremity otherwise. 2+ pulses and warm extremity with intact sensation. SKIN: Warm, dry, no rash. NEURO: [No focal deficits]. Alert and oriented [x3.] PSYCH: [Normal mood and affect.] Course Vital Signs Vital signs: Vital Signs Temperature 36.4 C 10/22/24 21:33 Pulse Rate 88 10/22/24 21:33 Respiratory Rate 18 10/22/24 21:33 Blood Pressure 134/85 10/22/24 21:33 Pulse Oximetry 100 10/22/24 21:33 Oxygen Delivery Room Air 10/22/24 21:33 Temperature 36.4 C 10/22/24 21:33 Pulse Rate 88 10/22/24 21:33 Respiratory Rate 18 10/22/24 21:33 Blood Pressure 134/85 10/22/24 21:33 Pulse Oximetry 100 10/22/24 21:33 Oxygen Delivery Room Air 10/22/24 21:33 Procedures Orthopedic Splinting/Casting Injury #1: Splinting/Casting Date: 10/22/24 Splinting/Casting Time: 23:13 Side: left Lower Extremity Injury Location: ankle Lower Extremity Immobilizer: posterior splint Splint: customized in ED Pre-Procedure Neuro Vascular Exam: normal Post-Procedure Neuro Vascular Exam: normal Other Orthopedic Equipment: crutches MDM - Extremity Injury (Lower) MDM Narrative Medical decision making narrative: 29-year-old otherwise healthy female presenting to the emergency department after rolling her left ankle while tripping down some stairs. She fell down 2 stairs and her left ankle inverted. She was not able to put weight on afterwards and feels slightly numb but she does have good range of motion but did not try to ambulate. She brought in her own crutches from home. Patient denies any other traumatic injuries. No knee pain, hip pain, head trauma. She was otherwise fine prior to the accident. Did not take any for pain prior to arrival. Exam shows that there is bruising and swelling over the lateral malleolus and left lower extremity. Swelling goes towards the midfoot. Able to wiggle the toes and plantar and dorsiflexion with good range of the ankle. Dorsiflex elicits pain while plantar flexion elicits no pain. Putting pressure on the heel elicits pain in the ankle. No medial malleolar bone tenderness or deformity. No proximal step-offs deformities to the lower extremity otherwise. 2+ pulses and warm extremity with intact sensation. She has normal vital signs. X-rays were obtained of the foot and ankle. Suspect potential tibial/fibular fracture, deltoid ligament sprain, high ankle sprain, foot fracture. Patient was offered analgesia but she politely declined. Foot x-ray shows small avulsion fracture of the anterior dorsal corner of the navicular bone as well as a punctate fragment in the distal tibia. This could potentially be a chronic degenerative fragment or acute ankle capsular fracture avulsion. Patient was placed in a posterior short fiberglass splint for stability and comfort. She was given prescription for pain control medications and instructions for orthopedic surgery follow-up. Patient's questions were answered she was discharged home at this time. Medical Records Attestation: I reviewed the patient's medical records. Imaging Data Attestation: I personally reviewed and interpreted this imaging study as follows: My impression: Impressions Ankle X-Ray 10/22/24 22:25 IMPRESSION: Small avulsion fracture over the anterior and dorsal corner of the navicular bone, may represent a capsular avulsion. Punctate ossific fragment anterior to the distal tibia, may represent a chronic degenerative or chronic fragment or acute anterior ankle capsular avulsion. Foot X-Ray 10/22/24 22:25 IMPRESSION: Small avulsion fracture over the anterior and dorsal corner of the navicular bone, may represent a capsular avulsion. Punctate ossific fragment anterior to the distal tibia, may represent a chronic degenerative or chronic fragment or acute anterior ankle capsular avulsion. Discharge Plan Discharge Clinical Impression: Closed navicular fracture of left ankle, Fracture of distal end of left tibia Patient Disposition: Home Condition: Stable Instructions: Antibiotic Form, Ankle Fracture (DC), Foot Fracture in Adults (ED) Additional Instructions: You have a small avulsion fracture over the navicular bone the left foot and ankle as well as a potentially acute fragment avulsion fracture of the distal tibia. We have placed you in a splint for immobilization comfort. Follow-up will be with Orthopedic surgery to repeat imaging and see how the pain and swelling are progressing with treatments which will be with high strength anti-inflammatory/pain control medication. Maintain nonweightbearing status and use crutches for ambulation. Patient Language: [place] Prescriptions: New ibuprofen 800 mg tablet 800 mg PO TID PRN (Reason: pain) Qty: 30 0RF acetaminophen [Tylenol Extra Strength] 500 mg tablet 1,000 mg PO TID PRN (Reason: pain) Qty: 30 0RF lidocaine 5 % adhesive patch,medicated 1 patch topical DAILY Qty: 15 0RF Rx Instructions: leave on most painful area for up to 12 hrs No Action omeprazole magnesium [Prilosec OTC] 20 mg tablet,delayed release (DR/EC) 20 mg PO DAILY hydroxyzine HCl 10 mg tablet 10 mg PO TID PRN (Reason: anxiety) Qty: 30 0RF cetirizine [Zyrtec] 10 mg tablet 10 mg PO DAILY PRN cholecalciferol (vitamin D3) 50 mcg (2,000 unit) capsule 100 mcg PO DAILY trazodone 50 mg tablet 50 mg PO QHS PRN (Reason: insomnia) Qty: 90 1RF Mirena 21 mcg/24hr (up to 8 yrs) 52 mg intrauterine device 1 device intrauterine ONCE Rx Instructions: as a single dose levothyroxine [Synthroid] 112 mcg tablet 112 mcg PO .COMPLEX Qty: 96 1RF Rx Instructions: 112 mcg PO daily M-S, 2 tab po on sun. 8 pills a week; Follow-up/Referrals: Tara Short APRN [Primary Care Provider] - Mike Rodriguez MD [Physician] - 1 Week (left tib fx? navicular fx.) Gurwinder Foster MD [Physician] - 1 Week (Left navicular fx, poss tib fx) Time of Disposition: 23:13
[2024-10-22 23:27] VITALS: BP 114/67; PULSE 71; RESP 16; TEMP 36.7; O2SAT 99
== END 2024-10-22 23:28 | disposition home or self-care (01) ==
PROVIDERS: Emergency Provider Student in an Organized Health Care Education/Training Program; PCP Nurse Practitioner Family
DX: S92.252A Displaced fracture of navicular [scaphoid] of left foot, initial encounter for closed fracture (principal); S82.302A Unspecified fracture of lower end of left tibia, initial encounter for closed fracture; W10.9XXA Fall (on) (from) unspecified stairs and steps, initial encounter
CPT/HCPCS: 29515; 73610; 73630; 99284

== ENCOUNTER 2024-12-23 19:20 | Emergency (ER) | payer BC, SELFPAY ==
--- NOTE | 2024-12-23 19:26 | ED.FEMALEGU ---
HPI - Female Genitourinary General Chief complaint: Urogenital-Female Stated complaint: UTI SYMPTOMS Time Seen by Provider: 12/23/24 19:37 Source: patient and RN notes reviewed Mode of arrival: ambulatory Limitations: no limitations History of Present Illness HPI Narrative: 29-year-old female presents concern for dysuria and suprapubic pressure, frequency. Reports symptoms started this morning. She denies fever, aches, chills, sweats. She denies nausea, vomiting. MD elicited complaint: UTI Related Data Home Medications ?Medication ?Instructions ?Recorded ?Confirmed ?Last Taken ?Type omeprazole magnesium 20 mg 20 mg PO DAILY 01/07/20 12/23/24 02/10/20 History tablet,delayed release (Prilosec OTC) cetirizine 10 mg tablet (Zyrtec) 10 mg PO DAILY PRN allergy symptoms 08/03/23 12/23/24 Unknown History cholecalciferol (vitamin D3) 50 100 mcg PO DAILY 08/03/23 12/21/24 Unknown History mcg (2,000 unit) capsule levonorgestrel (Mirena) 1 device intrauterine ONCE 05/29/24 12/23/24 Unknown History Allergies Allergy/AdvReac Type Severity Reaction Status Date / Time No Known Allergies Allergy Mild Verified 12/23/24 19:31 Review of Systems Review of Systems: CONSTITUTIONAL: Denies malaise, chills, sweats, or fever. CARDIOVASCULAR: Denies chest pain, palpitations, or edema. RESPIRATORY: Denies cough or dyspnea. GASTROINTESTINAL: Denies abdominal pain, nausea, vomiting, diarrhea GENITOURINARY: Reports dysuria, frequency, urgency, suprapubic pressure. Denies flank pain or hematuria. SKIN: Denies rash or itching. MUSCULOSKELETAL: Denies back pain or myalgia. All systems reviewed & are unremarkable except as noted in HPI and below PMFSH Past Medical History Medical History Ryne's disease Anxiety Obesity Gallbladder polyp Epigastric abdominal pain BMI 33.0-33.9,adult History of kidney stones History of gastroesophageal reflux (GERD) Surgical History Surgical History [place] teeth extracted History of dental surgery Hx laparoscopic cholecystectomy 11/9/20 History of myringotomy H/O removal of cyst chin History of tonsillectomy Family History Family History Father Hypertension Mother Hypertension Diabetes mellitus Asthma Grandparent Diabetes mellitus Uterine cancer Skin cancer Hypertension Social History Social History (Updated 12/21/24 @ 08:51 by Tamiko Bhagat CMA) Social History: 07/30/24 Patient declined SDOH Smoking status: Never smoker Alcohol intake: current Alcohol use details: rarely Substance use: never Substance use type: does not use Do You Feel Safe in your Home?: Yes Lack of Transportation: No Lack of Food: Never True Current Housing: I Have Housing Concerned About Future Housing: No Difficulty Paying Gas/Electric Bills: No Difficulty Paying for Meds: No Currently Unemployed: No Education: Bachelor's Degree Difficulty w/ Childcare or Family Care: No Living arrangements: with family Occupation/Education: occupation 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 There is no relevant family history pertinent to the presenting complaint Exam Narrative: GENERAL: Well-appearing, well-nourished, and in no acute distress. HEAD: Normocephalic. EYES: PERRLA, conjunctivae clear. NECK: Supple. No lymphadenopathy CHEST: Clear to auscultation. No respiratory distress. HEART: Regular rate and rhythm. ABDOMEN: Soft, nontender upon palpation, nondistended, no palpable or pulsatile masses, no guarding. No CVA tenderness SKIN: Warm, dry, no rash. NEURO: Alert and oriented x3. PSYCH: Normal mood and affect Course Course Emergency Course: Patient is aware of diagnosis, understands and agrees to treatment plan. Anticipatory guidance given. Patient agrees to follow-up as directed and is aware of reasons to seek care at the emergency department. Portions of this record may have been created with voice recognition software Level of Care: Express Care Visit Vital Signs Vital signs: Reviewed. MDM - Female Genitourinary MDM Narrative Medical decision making narrative: Exam findings and UA show no acute concerns or changes; patient is non-toxic appearing and is in no distress. Patient is appropriate for outpatient treatment and follow-up. Differential Diagnosis Differential diagnosis: Likely urinary tract infection and cystitis Critical Care Time Critical Care Time Critical Care Time: No Discharge Plan Discharge Clinical Impression: Urinary tract infection Patient Disposition: Home Condition: Stable Instructions: Antibiotic Form, Urinary Tract Infection in Women (ED) Additional Instructions: We will send a urine culture to the lab; if the culture identifies an organism that the prescribed antibiotic will not treat, you will receive a phone call from an urgent care staff member and an appropriate antibiotic will be prescribed. -Your symptoms should begin to improve within a day of starting antibiotics. But you should finish all the antibiotic pills you get. Otherwise your infection might come back. -Also recommend: increase water intake. Tylenol/ibuprofen as needed for pain or fever -Follow-up with your primary care provider for urine recheck or seek ER visit if condition worsens with high fever, nausea, vomiting and severe back pain. Patient Language: [place] Prescriptions: New sulfamethoxazole-trimethoprim 800-160 mg tablet 1 tablet PO Q12H 7 Days Qty: 14 0RF No Action omeprazole magnesium [Prilosec OTC] 20 mg tablet,delayed release (DR/EC) 20 mg PO DAILY hydroxyzine HCl 10 mg tablet 10 mg PO TID PRN (Reason: anxiety) Qty: 30 0RF cetirizine [Zyrtec] 10 mg tablet 10 mg PO DAILY PRN (Reason: allergy symptoms) cholecalciferol (vitamin D3) 50 mcg (2,000 unit) capsule 100 mcg PO DAILY trazodone 50 mg tablet 50 mg PO QHS PRN (Reason: insomnia) Qty: 90 1RF Mirena 21 mcg/24hr (up to 8 yrs) 52 mg intrauterine device 1 device intrauterine ONCE Rx Instructions: as a single dose ibuprofen 800 mg tablet 800 mg PO TID PRN (Reason: pain) Qty: 30 0RF acetaminophen [Tylenol Extra Strength] 500 mg tablet 1,000 mg PO TID PRN (Reason: pain) Qty: 30 0RF levothyroxine [Synthroid] 112 mcg tablet 112 mcg PO .COMPLEX Qty: 96 1RF Rx Instructions: 112 mcg PO daily M-S, 2 tab po on sun. 8 pills a week; Follow-up/Referrals: Tara Short APRN [Primary Care Provider, Family Practice] Time of Disposition: 19:40
[2024-12-23 19:29] VITALS: BP 143/91; PULSE 82; RESP 16; TEMP 36.5; O2SAT 100
[2024-12-23 19:38] LABS: EDUAAPPEAR Clear; EDUABILI Negative (Negative); EDUABLOOD Trace (Negative); EDUACOLOR1 Yellow; EDUAGLUCOSE Negative (Negative); EDUAKETONE Negative (Negative); EDUALEUKO Negative (Negative); EDUANITRATE Positive (Negative); EDUAPH 6.0; EDUAPROTEIN Negative (Negative); EDUASPGRAVITY 1.005; EDUAUROBILI 0.2
== END 2024-12-23 19:42 | disposition home or self-care (01) ==
PROVIDERS: Emergency Provider Nurse Practitioner; PCP Nurse Practitioner Family
DX: N39.0 Urinary tract infection, site not specified (principal); E06.3 Autoimmune thyroiditis; K21.9 Gastro-esophageal reflux disease without esophagitis; E66.9 Obesity, unspecified; Z68.35 Body mass index [BMI] 35.0-35.9, adult; F41.9 Anxiety disorder, unspecified
CPT/HCPCS: 81003; 87086; 99213; G0463

== ENCOUNTER 2024-12-25 08:15 | Outpatient (CLI) | payer BC, SELFPAY ==
--- NOTE | ~2024-12-25 | US_ITS ---
EXAMINATION: US breast RT complete HISTORY: 29-year-old female with painful palpable right breast lumps. COMPARISON: None FINDINGS: Targeted ultrasound at the area of the patient's palpable lump at the 12 o'clock position of the right breast, 11 cm from the nipple reveals no discrete cystic or solid lesions. Evaluation of all 4 quadrants of the right breast also showed no evidence of a suspicious cystic or solid lesion. IMPRESSION: No suspicious sonographic abnormality correlates to the area of palpable lump. BI-RADS 1, NEGATIVE RECOMMENDATION: Clinical management of patient's palpable lump.. Reviewed, dictated and finalized at location B. IMPRESSION: No suspicious sonographic abnormality correlates to the area of pal pable lump. BI-RADS 1, NEGATIVE RECOMMENDATION: Clinical management of patient's palpable lump..
== END 2024-12-25 08:16 | disposition home or self-care (01) ==
LOC: MICIMG 08:16
PROVIDERS: PCP Nurse Practitioner Family; Visit Provider Obstetrics & Gynecology
DX: N63.15 Unspecified lump in the right breast, overlapping quadrants (principal)
CPT/HCPCS: 76641